=== PATIENT | female | born 1950 | race Caucasian/White ===

== ENCOUNTER 2020-03-26 10:54 | Emergency (ER) | payer MEDICARE, MEDICAID, SELFPAY ==
--- NOTE | 2020-03-26 10:55 | NURSING ---
NO OLD EKGS
[2020-03-26 10:58] VITALS: BP 123/67; PULSE 68; RESP 12; TEMP 36.8; O2SAT 99; BMI 32.1
--- NOTE | 2020-03-26 11:26 | EKG12_ITS ---
Test Reason : CP Blood Pressure : / mmHG Vent. Rate : 064 BPM Atrial Rate : 064 BPM P-R Int : 124 ms QRS Dur : 080 ms QT Int : 424 ms P-R-T Axes : 037 013 028 degrees QTc Int : 437 ms Normal sinus rhythm Normal ECG Confirmed by CARMEN NICE, DORINDA ([id number]), magazine editor MALU IYER ([id number]) on 03/28/2020 11:26:41 A M Referred By: EDEL Confirmed By:DMITRIY MORALES MD
[2020-03-26] MEDS: Aspirin 81 MG TAB.CHEW 324 MG PO (11:34)
--- NOTE | 2020-03-26 11:35 | RAD_ITS ---
STUDY: X-RAY CHEST REASON FOR EXAM: Female, 69 years old. Chest, abd, back pain x one week. n/v last night. TECHNIQUE: Single AP portable view of the chest. COMPARISON: None. FINDINGS: EKG electrodes are seen. Mild degree of increased markings in the lingular segment of the left upper lobe. Follow-up is recommended. There is no demonstrated pleural abnormality. Normal size heart. Normal mediastinum and ingrid. Normal visualized pulmonary arteries. Normal visualized aortic arch and descending thoracic aorta. There are diffuse degenerative changes of the visualized thoracic spine. Normal visualized ribs, clavicles, and shoulders. There is no demonstrated abnormality of the visualized soft tissue structures of the upper abdomen. RAD/Chest 1 View (Portable) IMPRESSION: Mild increased markings in the lingular segment of the left upper lobe. Follow-up is recommended. Electronically Signed: Ruslan Petersen, at 12:48 EDT , Service support ,
[2020-03-26 11:37] LABS: Absolute Lymphocyte Count 2.14 X10^3/uL (0.83-4.51); Absolute Neutrophil Count 4.5 X10^3/uL (2.0-7.7); Basophil# 0.04 X10^3/uL; Basophil% 0.5 % (0-1); Eosinophil# 0.28 X10^3/uL; Eosinophils% 3.7 % (0-5); Hematocrit 41.8 % (37-47); Hemoglobin 13.6 g/dL (12.0-15.0); Lymphocyte # 2.14 X10^3/ul (4.0); Lymphocyte % 28.6 % (19-41); Mean Corp Hgb Conc 32.5 g/dL (32-36); Mean Corpuscular Hgb 30.2 pg (27.0-32.0); Mean Corpuscular Volume 92.7 fL (81-99); Monocyte# 0.48 X10^3/uL; Monocyte% 6.4 % (0-10); NRBC Flagged by Analyzer 0 % (0-5); Neutrophil # 4.51 X10^3/uL (2.7-7.7); Neutrophil % 60.4 % (47-70); Platelet Count 287 K/mm3 (150-450); RBC Distribution Width CV 13.1 % (11.6-14.6); RBC Distribution Width SD 44.2 fl (35.1-43.9); Red Blood Count 4.51 M/mm3 (4.2-5.4); White Blood Count 7.5 K/mm3 (4.4-11.0)
[2020-03-26 11:39] VITALS: O2SAT 99
[2020-03-26 11:40] VITALS: BP 116/92; PULSE 66
[2020-03-26] MEDS: Nitroglycerin SL (ED/IMG/CATH) 0.4 MG TABLET SUBLINGUAL ×2 (11:40→11:44)
[2020-03-26 11:44] VITALS: BP 122/67; PULSE 92
--- NOTE | 2020-03-26 11:52 | ED.VISSUMM ---
- ER Visit Summary Date of Service: 03/26/20 Chief Complaint: Chest pain History of Present Illness: The patient is a 69 F who presents with chest pain that began 1 week ago. Patient states the pain radiates into her back. Patient describes the pain as aching and dull. Patient states the pain is worse with movement. Patient states she has been taking Aleve for this. Patient states it has been helping. Patient also admits to some pain into her abdomen with some nausea and vomiting. Patient denies any fevers or chills but does admit to some sweats. Patient admits to some pain with deep breathing. Physical Examination: Vital signs are stable. Patient is afebrile. Patient is in no acute distress. Oral mucosa is pink and moist. Neck is supple. Trachea is midline. There is no JVD noted. Heart was regular rate and rhythm. Lungs are clear and equal bilaterally. Abdomen is soft. Bowel sounds are normal. There is no tenderness. There is no rebound or guarding noted. Skin is warm dry. Cranial nerves II through XII are intact. There are no focal motor or sensory deficits noted. Extremities are intact. There is no calf tenderness or edema. Test Results: EKG showed normal sinus rhythm with a rate of 64. There are no acute ST or T wave changes. CBC and basic metabolic profile were essentially within normal limits. Troponin was normal. Chest x-ray shows some mild increased markings in the lingular segment of the left upper lobe. This was interpreted by the radiologist and reviewed by myself. Emergency Department Course and Treatment: Patient was given aspirin and sublingual nitroglycerin here. Patient is feeling better on reevaluation. Patient has a HEART score of 3. Patient was advised that this is low risk for acute cardiac event. Patient was instructed to follow-up with her primary care physician in 5 to 7 days. Patient understood and was agreeable with the plan. All questions were answered. Disposition: Discharge home Impression: Chest pain This note was generated with [employer] dictation software. It may contain incorrect words, spelling, and punctuation that were not noted in review of the chart prior to signing ED Disposition - Plan for ED Patient: Disposition: Home or Assisted Living Diagnosis: Chest pain Instructions: ED Chest Pain Atypical Unkn Cause Referrals: Jarrett Hopkins MD [Primary Care Provider] - 5-7 Days
[2020-03-26 11:59] LABS: Anion Gap 3 (5-15); BUN 12 mg/dL (7-18); BUN/Creat Ratio 14.1 RATIO (10-20); Calcium,Total 8.6 mg/dL (8.5-10.1); Chloride 110 mmol/L (98-107); Creatinine, Serum 0.85 mg/dL (0.55-1.02); EST Glomerular Filtration Rate 70 mL/min (>60); Est Glom Filt Rate - Afr Amer 85 mL/min (>60); Estimated Creatinine Clearance 47.14 ml/min; Glucose 93 mg/dL (74-106); Potassium 3.4 mmol/L (3.5-5.1); Sodium Level 142 mmol/L (136-145)
[2020-03-26 13:18] VITALS: BP 114/71; PULSE 71; RESP 14; O2SAT 97
== END 2020-03-26 13:18 | disposition home or self-care (01) ==
PROVIDERS: Emergency Provider Emergency Medicine; PCP Family Medicine
DX: R07.9 Chest pain, unspecified (principal); E66.9 Obesity, unspecified
CPT/HCPCS: 71045; 80048; 84484; 85025; 93005; 99285

== ENCOUNTER 2020-04-04 16:35 | Emergency (ER) | payer MEDICARE, MEDICAID, SELFPAY ==
[2020-04-04 16:36] VITALS: BP 117/85; PULSE 84; RESP 16; TEMP 36.3; O2SAT 98; BMI 31.4
--- NOTE | 2020-04-04 16:54 | CT_ITS ---
STUDY: CTA CHEST REASON FOR EXAM: Female, 69 years old. Shortness of breath, fatigue back pain RADIATION DOSAGE (If Supplied By Facility): CTDIvol = ( 9.57 ) mGy, DLP = ( 371.95 ) mGycm TECHNIQUE: The examination was performed with the intravenous administration of IV 75mL Isovue-370. Post-processing of the angiographic images was performed, with multiplanar reformation and 3D reconstruction. Individualized dose optimization techniques were used for this CT. COMPARISON: None. FINDINGS: There is no acute or chronic pulmonary embolism. Aorta is of normal caliber. Lungs are clear. There is no pneumothorax, pulmonary edema or pleural effusions. The esophagus is thickened at multiple segments without obstruction. Osseous structures are intact. Abdominal structures are unremarkable. CT/CTA Chest W/WO Contrast IMPRESSION: 1. No pulmonary embolism 2. No acute vascular thoracic pathology. 3. Esophageal thickening. Refer to endoscopy to exclude possibility of neoplasm.. Electronically Signed: Carla Serrano, at 17:50 EDT Tel , Service support ,
--- NOTE | 2020-04-04 16:54 | EKG12_ITS ---
Test Reason : Blood Pressure : / mmHG Vent. Rate : 077 BPM Atrial Rate : 077 BPM P-R Int : 118 ms QRS Dur : 072 ms QT Int : 362 ms P-R-T Axes : 041 030 035 degrees QTc Int : 409 ms Normal sinus rhythm Normal ECG Confirmed by RADHA NICE, KYLE ([id number]), editor index IMESHA PEREZ ([id number]) on 04/09/2020 10:10:37 AM Referred By: JENNIFER Confirmed By:KYLE GARCIA MD
--- NOTE | 2020-04-04 16:57 | ED.DCSUM_ITS ---
History of Present Illness Chief Complaint: Shortness of Breath Informant: Patient Onset: Weeks - 2 weeks Context: Gradual Onset Timing: Waxes and wanes Current Severity: Mild Maximum Severity: Moderate Narrative: Patient presents with a two-week history of shortness of breath, present all the time but worse with exertion. She also reports chest pain that waxes and wanes. She states last evening the pain went into her lower back. She was seen by her PCP yesterday where outpatient labs revealed an elevated d-dimer. She was called today and told to come the emergency room to rule out a blood clot. Patient was seen in the ER about a week ago for chest pain. Work-up at that time was unremarkable and she was advised to follow-up with her PCP. Patient denies fever or chills. She has not had significant cough. She denies exposure to Covid and states that she really has not been going out of the house much. - Past Medical History (1) Hypothyroid Status: Chronic Past Medical History - Allergies and Home Meds Allergies/Adverse Reactions: Allergies No Known Allergies Allergy (Verified 04/04/20 16:36) Primary Care Physician: Jarrett Hopkins MD [Primary Care Provider] - Prior records reviewed: Yes Smoking Status: Never smoker Review of Systems General: Denies: Chills, Fever Eyes: Denies: Visual changes - bilaterally ENT: Denies: Bilateral ear pain Cardiovascular: Reports: Chest pain Respiratory: Reports: Dyspnea. Denies: Cough Gastrointestinal: Denies: Abdominal pain, Nausea, Vomiting, Diarrhea Genitourinary: Denies: Dysuria Musculoskeletal: Denies: Swelling, Extremity Pain Skin: Denies: Rash Hematologic: Denies: Easy bruising, Easy bleeding Allergy: Denies: Uticaria Physical Exam Vital Signs/Narrative: Vital Signs Temp Pulse Resp BP Pulse Ox 04/04/20 16:36 97.3 F L 84 16 117/85 H 98 Inital Vital Signs reviewed: Yes General: Well nourished, Well developed Head: Normocephalic ENT: Moist mucous membranes Neck: Supple Cardiovascular: Regular rate, Regular rhythm Respiratory: No distress, CTA bilaterally Abdomen: Soft, Nontender Extremities: Nontender, No edema Skin: Normal color Neurological: Alert, Oriented x3 Psychological: Normal affect Diagnostic/Tx/Re-eval Impressions Chest CTA 04/04/20 16:54 IMPRESSION: 1. No pulmonary embolism 2. No acute vascular thoracic pathology. 3. Esophageal thickening. Refer to endoscopy to exclude possibility of neoplasm.. Electronically Signed: Carla Serrano, at 17:50 EDT Tel , Service support , 04/04/20 16:54 CTA Chest W/WO Contrast [CT] Stat Laboratory Results 04/04/20 04/04/20 04/04/20 17:00 17:00 17:00 WBC 7.4 RBC 4.11 L Hgb 12.7 Hct 38.1 MCV 92.7 MCH 30.9 MCHC 33.3 RDW Std Deviation 43.9 RDW Coeff of Valentina 13.1 Plt Count 255 MPV 10.1 Immature Gran % (Auto) 0.300 Neut % (Auto) 67.5 Lymph % (Auto) 20.7 [place] % (Auto) 7.0 Eos % (Auto) 4.1 Baso % (Auto) 0.4 Absolute Neuts (auto) 5.0 Absolute Lymphs (auto) 1.53 Nucleated RBC % 0 Sodium 141 Potassium 3.7 Chloride 109 H Carbon Dioxide 24.0 Anion Gap 8 BUN 11 Creatinine 0.81 Estim Creat Clear Calc 49.46 Est GFR (MDRD) Af Amer 90 Est GFR (MDRD) Non-Af 75 BUN/Creatinine Ratio 13.6 Glucose 98 Calcium 8.8 Troponin I < 0.015 COVID-19 (MARIANNE) Negative - EKG Initial EKG Interpretation: Sinus Rhythm - Sinus at 77 with no acute ischemia. - Medical Decision Making Patient's labs from [facility] yesterday were reviewed. They are repeated today and remain normal. EKG reveals no acute ischemia. CTA of the chest reveals no evidence of pulmonary embolism, no pneumonia, no lung scarring. Patient's Covid test is negative. On repeat examination patient is resting comfortably. Test results are discussed with her. She does feel comfortable with discharge to home and close follow-up. She states that she is scheduled for an outpatient stress test next week. If her symptoms worsen or she has any concerns she is to return to the emergency room. She is comfortable with this plan. ED Disposition - Plan for ED Patient: Disposition: Home or Assisted Living Diagnosis: Dyspnea Instructions: ED Dyspnea Referrals: Jarrett Hopkins MD [Primary Care Provider] - Keep Anival appointment
[2020-04-04 17:10] VITALS: PULSE 74; RESP 12; O2SAT 97
[2020-04-04 17:20] LABS: Absolute Lymphocyte Count 1.53 X10^3/uL (0.83-4.51); Basophil# 0.03 X10^3/uL; Basophil% 0.4 % (0-1); Eosinophils% 4.1 % (0-5); Hematocrit 38.1 % (37-47); Hemoglobin 12.7 g/dL (12.0-15.0); Lymphocyte # 1.53 X10^3/ul (4.0); Lymphocyte % 20.7 % (19-41); Mean Corp Hgb Conc 33.3 g/dL (32-36); Mean Corpuscular Hgb 30.9 pg (27.0-32.0); Mean Corpuscular Volume 92.7 fL (81-99); Mean Platelet Vol. 10.1 fl (6.2-12.0); Monocyte# 0.52 X10^3/uL; NRBC Flagged by Analyzer 0 % (0-5); Neutrophil # 4.99 X10^3/uL (2.7-7.7); Neutrophil % 67.5 % (47-70); Platelet Count 255 K/mm3 (150-450); RBC Distribution Width CV 13.1 % (11.6-14.6); RBC Distribution Width SD 43.9 fl (35.1-43.9); Red Blood Count 4.11 M/mm3 (4.2-5.4); White Blood Count 7.4 K/mm3 (4.4-11.0)
[2020-04-04 17:44] LABS: Anion Gap 8 (5-15); BUN 11 mg/dL (7-18); BUN/Creat Ratio 13.6 RATIO (10-20); Calcium,Total 8.8 mg/dL (8.5-10.1); Chloride 109 mmol/L (98-107); Creatinine, Serum 0.81 mg/dL (0.55-1.02); EST Glomerular Filtration Rate 75 mL/min (>60); Est Glom Filt Rate - Afr Amer 90 mL/min (>60); Estimated Creatinine Clearance 49.46 ml/min; Glucose 98 mg/dL (74-106); Potassium 3.7 mmol/L (3.5-5.1); Sodium Level 141 mmol/L (136-145)
[2020-04-04 19:06] LABS: Probe Check PASS; Specimen Processing Control PASS
[2020-04-04 19:23] VITALS: BP 110/69; PULSE 77; RESP 18; O2SAT 100
== END 2020-04-04 19:24 | disposition home or self-care (01) ==
PROVIDERS: Emergency Provider Emergency Medicine; PCP Family Medicine
DX: R06.00 Dyspnea, unspecified (principal); E03.9 Hypothyroidism, unspecified; Z79.899 Other long term (current) drug therapy
CPT/HCPCS: 71275; 80048; 84484; 85025; 87635; 93005; 99284; C9803; Q9967; A4216; U0003

== ENCOUNTER 2020-04-24 10:48 | Inpatient (IN) | payer MEDICARE, MEDICAID, SELFPAY ==
[2020-04-24] VITALS (18 sets, daily range): BP systolic 80–129; BP diastolic 46–70; PULSE 81–102; RESP 12–21; TEMP 36.3–37.2; O2SAT 96–100; BMI 30.2; BMI 30.9
--- NOTE | 2020-04-24 11:01 | RAD_ITS ---
STUDY: X-RAY CHEST REASON FOR EXAM: Female, 69 years old. GENERAL WEAKNESS, NAUSEA, LOSS OF TASTE, DIFFICULT INSPIRATION, DIAPHORESIS TECHNIQUE: Single AP portable view of the chest. COMPARISON: Comparison is made with prior study dated 03/26/2020. FINDINGS: EKG electrodes are seen. Hyperinflation. The lungs are clear. There is no demonstrated pleural abnormality. Normal size heart. Normal mediastinum and ingrid. Normal visualized pulmonary arteries. Normal visualized aortic arch and descending thoracic aorta. There are diffuse degenerative changes of the visualized thoracic spine. Normal visualized ribs, clavicles, and shoulders. There is no demonstrated abnormality of the visualized soft tissue structures of the upper abdomen. RAD/Chest 1 View (Portable) IMPRESSION: Hyperinflation. No acute abnormality is seen. Electronically Signed: Ruslan Petersen, at 12:10 EDT , Service support ,
--- NOTE | 2020-04-24 11:02 | EKG12_ITS ---
Test Reason : Blood Pressure : / mmHG Vent. Rate : 084 BPM Atrial Rate : 084 BPM P-R Int : 118 ms QRS Dur : 080 ms QT Int : 378 ms P-R-T Axes : 028 026 027 degrees QTc Int : 446 ms Normal sinus rhythm Normal ECG Confirmed by CARMEN NICE, DORINDA ([id number]), editor newspaper MALU IYER ([id number]) on 05/01/2020 12:52:13 P M Referred By: HANNAH Confirmed By:DMITRIY MORALES MD
--- NOTE | 2020-04-24 11:06 | ED.VISSUMM ---
- ER Visit Summary Date of Service: 04/24/20 Chief Complaint: Generalized weakness History of Present Illness: The patient is a 69 F who presents with generalized weakness that is been getting worse over the past 3 days. Patient states she feels weak all over. Patient admits to some shortness of breath but denies any cough. Patient admits to some sweats and subjective chills but denies any fevers. Patient admits to some nausea and vomiting. Patient also admits to some mild neck pain. Patient denies any back pain. Patient denies any dysuria or hematuria. Patient denies any headaches. Patient does admit to loss of taste. Physical Examination: Vital signs are stable. Patient is afebrile. Patient is in no acute distress. Oral mucosa is pink and moist. Neck is supple. Trachea is midline. There is no JVD noted. Heart was regular rate and rhythm. Lungs are clear and equal bilaterally. Abdomen is soft. Bowel sounds are normal. There is no tenderness. There is no rebound or guarding noted. Skin is warm dry. Cranial nerves II through XII are intact. There are no focal motor or sensory deficits noted. Extremities are intact. There is no calf tenderness or edema. Rectal exam showed good sphincter tone. There is dark brown stool. Test Results: CBC showed hemoglobin of 6.6 and hematocrit 21.8. Hemoglobin was 12.7 on 04/04/2020. Basic metabolic profile showed a mild hypokalemia of 3.3. EKG showed normal sinus rhythm with a rate of 84. There are no acute ST or T wave changes. Portable chest x-ray was obtained. There is hyperinflation but no acute cardiopulmonary process. This was interpreted by the radiologist and reviewed by myself. Hemoccult is pending. Emergency Department Course and Treatment: Patient was given IV fluids. Patient was typed and crossed for a unit of blood. This will be transfused. Case was discussed with Dr. Nelson. He recommended doing a COVID swab. This was done. He is planning on doing an EGD tomorrow at 10 AM. Case was discussed with the hospitalist, Dr. Hubbard. She will admit the patient to her service. Patient understood and was agreeable with the plan. All questions were answered. Disposition: Admit to hospital Impression: 1. Anemia 2. Probable upper GI bleed This note was generated with Dragon dictation software. It may contain incorrect words, spelling, and punctuation that were not noted in review of the chart prior to signing ED Disposition - Plan for ED Patient: Disposition: Acute Care Hospital [facility] Diagnosis: Anemia, Upper GI bleeding
[2020-04-24 11:18] LABS: Absolute Lymphocyte Count 1.27 X10^3/uL (0.83-4.51); Basophil# 0.04 X10^3/uL; Basophil% 0.4 % (0-1); Eosinophil# 0.14 X10^3/uL; Eosinophils% 1.5 % (0-5); Hematocrit 21.8 % (37-47); Hemoglobin 6.6 g/dL (12.0-15.0); Lymphocyte # 1.27 X10^3/ul (4.0); Lymphocyte % 13.7 % (19-41); Mean Corp Hgb Conc 30.3 g/dL (32-36); Mean Corpuscular Hgb 29.1 pg (27.0-32.0); Mean Platelet Vol. 9.5 fl (6.2-12.0); Monocyte# 0.66 X10^3/uL; Monocyte% 7.1 % (0-10); NRBC Flagged by Analyzer 0 % (0-5); Neutrophil # 7.01 X10^3/uL (2.7-7.7); Neutrophil % 75.9 % (47-70); Platelet Count 438 K/mm3 (150-450); RBC Distribution Width CV 13.4 % (11.6-14.6); Red Blood Count 2.27 M/mm3 (4.2-5.4); White Blood Count 9.3 K/mm3 (4.4-11.0)
[2020-04-24 11:38] LABS: ALB/GLOB Ratio 0.7 RATIO (0.9-2.4); AST(SGOT) 15 U/L (15-37); Alanine Aminotransfer ALT/SGPT 17 U/L (13-56); Albumin, Serum 2.8 g/dL (3.2-5.0); Alkaline Phosphatase 84 U/L (45-117); Anion Gap 5 (5-15); BUN 15 mg/dL (7-18); BUN/Creat Ratio 17.3 RATIO (10-20); Calcium,Total 8.6 mg/dL (8.5-10.1); Chloride 104 mmol/L (98-107); Creatinine, Serum 0.87 mg/dL (0.55-1.02); EST Glomerular Filtration Rate 69 mL/min (>60); Est Glom Filt Rate - Afr Amer 83 mL/min (>60); Estimated Creatinine Clearance 46.05 ml/min; Globulin 4.1 g/dL (2.2-4.2); Glucose 109 mg/dL (74-106); Potassium 3.3 mmol/L (3.5-5.1); Protein, Total 6.9 g/dL (6.4-8.2); Sodium Level 137 mmol/L (136-145)
--- NOTE | 2020-04-24 13:49 | HP.PCM_ITS ---
History of Present Illness Date of Admission: 04/24/20 Chief Complaint: generalised weakness The patient is a 69 year old F with a PMH as outlined who was admitted with a complaint generalized malaise. Patient says she has been having generalized body pains over the last month and symptoms have gradually been worsening. She has therefore been taking Aleve 2 tablets daily for this pain. Symptoms have been worse over the past 3 days. She had some associated shortness of breath but denied any cough, chest pain, palpitations, dizziness though she did admit to some nausea and vomiting. She said her vomiting was dark and coffee like. She admits to dark stools over the last few days but denied any dysuria or hematochezia or hematuria. She admitted to abdominal pain mainly in her epigastrium and says she thought it was her ulcers acting up. Review of signs otherwise negative. Patient says she has a history of peptic ulcer disease diagnosed decades ago. She denies taking any medications for this though she has Protonix in her med list, she denies taking this. In the ED, vitals show temperature of 97.8 Fahrenheit with pulse rate of 81 and respiratory to 15 as well as blood pressure of 114/49. She was saturating at 100% on room air. Chemistry showed sodium of 137 potassium of 3.3 with bilirubin of 0.3 and creatinine of 0.87. CBC showed hemoglobin of 6.6 and WBC of 9.3 with platelets of 438. Chest x-ray showed no acute cardiopulmonary process. Of note, hemoglobin on 04/04/2020 was 12.7. She has been admitted to be managed for acute anemia likely due to bleeding peptic ulcer as well as general debility. [] Past Medical History Past Medical History (Chronic Problems): Chronic Problems Hypothyroid (Chronic) Allergies No Known Allergies Allergy (Verified 04/24/20 10:48) Home Medications: Ambulatory Orders Medication Instructions Recorded Escitalopram Oxalate 10 mg PO DAILY 03/26/20 Levothyroxine [Synthroid] 75 mcg PO DAILY 03/26/20 Paliperidone Palmitate [Invega 156 mg IM QMONTH 03/26/20 Sustenna] Benztropine Mesylate 1 mg PO DAILY 04/04/20 Pantoprazole Sodium [Protonix] 20 mg PO DAILY 04/04/20 Naproxen Sodium [Aleve] 220 mg PO BID 04/24/20 Surgical History: no surgical history Psychiatric History: No pertinent psych hx MEAT WRAPPER History: No pertinent MEAT WRAPPER history Lives: Alone Smoking Status: Never smoker Alcohol: None Drugs: None - *Family History Maternal History Items: No pertinent history Paternal History Items: No pertinent history Review of Systems Constitutional: Reports: Malaise, Weakness, Fatigue. Denies: Chills, Fever, Weight Change Eyes: Denies: Blurred vision HEENT: Denies: Head Aches, Sinus Congestion, Sinus Drainage Cardiovascular: Denies: Chest Pain, Palpitations Respiratory: Denies: Cough, Shortness of Breath, Shortness of breath at rest, Shortness of breath upon exertion, Sputum production Gastrointestinal: Reports: Abdominal Pain, Nausea, Melena, Vomiting, - - coffee ground emesis Genitourinary: Denies: Dysuria Musculoskeletal: Denies: Joint Pain, Joint Tenderness Skin: Denies: Rash, Wounds Neurological: Denies: Numbness, Tingling, Focal weakness Psychiatric: Denies: Anxiety, Depression, Homicidal Ideations, Suicidal Ideations Hematologic/ Lymphatic: Denies: Easy Bruising, Easy Bleeding VTE Information - Inpt Only VTE Present on Admission: No VTE Pharm Prophylaxis ordered?: No Reason prophylaxis not ordered:: Medical Contraindication - acute on chronic anemia Patient Problems: Active and Suspected Problems Anemia (Acute) Upper GI bleeding (Acute) - Physical Exam Vitals/I&O's: Vital Signs Temp Pulse Resp BP Pulse Ox 97.4 F L 102 H 18 105/70 100 04/24/20 10:57 04/24/20 10:57 04/24/20 10:57 04/24/20 10:57 04/24/20 10:57 Oxygen Delivery Method Room Air Weight: 160 lb Body Mass Index (BMI) 30.2 General: Alert, Oriented x3, Cooperative HEENT: Atraumatic, PERRLA, EOMI, Normocephalic Oral: Dry Mucosa Neck: Supple, No JVD, Negative Carotid Bruits Lungs: Clear to auscultation, Normal air movement, No rhonchi, No wheeze Cardiovascular: Regular rate, Regular Rhythm, Normal S1, Normal S2, No murmurs Abdomen: Bowel Sounds Present, Soft, - - moderate epigstric pain, no guarding or rebound tenderness Extremities: No clubbing, No cyanosis, No edema, Capillary Refill Less than 3 Seconds Skin: No rashes, No breakdown Musculoskeletal: No Tenderness to Palpation of Joints or Extremities Lymphatic: No Cervical, Supraclavicular, or Inguinal Adenopathy Neurological: Cranial nerves II-XII grossly intact, Neuro grossly intact, Motor Exam 5/5 strength throughout Psych/Mental Status: Normal Affect, Appropriate, Alert and oriented to time, place, person, mood and affect Laboratory Results 04/24/20 11:10: WBC 9.3, RBC 2.27 L, Hgb 6.6 L, Hct 21.8 L, MCV 96.0, MCH 29.1, MCHC 30.3 L, RDW Std Deviation 47.0 H, RDW Coeff of Valentina 13.4, Plt Count 438, MPV 9.5, Immature Gran % (Auto) 1.400 H, Neut % (Auto) 75.9 H, Lymph % (Auto) 13.7 L, [place] % (Auto) 7.1, Eos % (Auto) 1.5, Baso % (Auto) 0.4, Absolute Neuts (auto) 7.0, Absolute Lymphs (auto) 1.27, Nucleated RBC % 0 04/24/20 11:10: Sodium 137, Potassium 3.3 L, Chloride 104, Carbon Dioxide 28.0, Anion Gap 5, BUN 15, Creatinine 0.87, Estim Creat Clear Calc 46.05, Est GFR (MDRD) Af Amer 83, Est GFR (MDRD) Non-Af 69, BUN/Creatinine Ratio 17.3, Glucose 109 H, Calcium 8.6, Total Bilirubin 0.30, AST 15, ALT 17, Alkaline Phosphatase 84, Troponin I 0.016, Total Protein 6.9, Albumin 2.8 L, Globulin 4.1, Albumin/Globulin Ratio 0.7 L Diagnostic Data Chest X-Ray 04/24/20 11:01 IMPRESSION: Hyperinflation. No acute abnormality is seen. Electronically Signed: Ruslan Petersen, at 12:10 EDT , Service support , Assessment/Plan All Active Problems Anemia (Acute) Upper GI bleeding (Acute) 69-year-old female admitted with a complaint of generalized malaise and found to have acute anemia. #Acute anemia due to bleeding peptic ulcer * patient does have a history of peptic ulcer disease, and has been taking naproxen frequently for body aches. She doesnt take any protonix, though it is in her med rec.; * Hemoglobin is 6.6. Hemoglobin was 12.7 on 04/04/2020. * Admits to dark stools and coffee-ground emesis or bright red blood per rectum. * Admit to PCU with telemetry. * Patient typed and crossed to be transfused 1 unit of packed red blood cells from ED. * Consult general surgery. * Will keep n.p.o. past midnight for EGD and colonoscopy tomorrow * check iron panel * Agree gently with IV fluids. * IV pantoprazole 40 mg twice daily * # Peptic ulcer disease: management as above. #Debility likely due to acute anemia: PT OT on board. Management as above. Fall precautions. #Hypothyroidism: On Synthroid #Schizophrenia and bipolar disorder: On Invega and escitalopram DVT prophylaxis: * SCDs. * No anticoagulation on account of acute anemia CODE STATUS:full code * Patient counseled extensively about different types of CODE STATUS including full code, DNR CCA and DNR CCA. Patient elects to be full code. * Total [id number] time 17 minutes. Inpatient E&M: 72900 Init Hosp L3 Procedures: 19789 Advncd Care Plan 30 Min
[2020-04-24 13:50] LABS: Bacteria 0 SEEN /hpf (None Seen); Mucous, Urine 0 SEEN /hpf (<or=2+); Red Blood Cells-Urine 0 SEEN /hpf (0-5)
--- NOTE | 2020-04-24 13:55 | NURSING ---
MED SURG ANEMIA, GENERALIZED WEAKNESS TRANG
[2020-04-24 14:01] LABS: Color, Urine Yellow (Yellow); Glucose, Dipstick Normal (Normal); Ketone-Dipstick 5 mg/dl (Negative); Leukocyte Esterase-Dipstick 100 /ul (Negative); Nitrite-Dipstick Negative (Negative); Occult Blood-Urine Negative /ul (Negative); Protein-Dipstick 30 mg/dl (Negative); Urine Clarity Clear (Clear); Urine Urobilinogen 1 mg/dl (Normal)
[2020-04-24 14:04] LABS: Urine Bilirubin Dipstick 1 mg/dL (Negative)
[2020-04-24 14:16] LABS: Calcium Oxalate Crystals Ur 2+ /hpf (<or=2+); Squamous Epithelial Cells - UA 0-5 SEEN /hpf (5-10); White Blood Cells 0-5 SEEN /hpf (0-5)
[2020-04-24 14:59] LABS: CPK Total, Creatine Kinase 47 U/L (26-192)
[2020-04-24] MEDS: Potassium Chloride 40 MEQ in 0.9% Normal Saline 1,000 ML 125 MEQ IV (18:25)
[2020-04-25] VITALS (23 sets, daily range): BP systolic 80–109; BP diastolic 33–62; PULSE 66–99; RESP 16–18; TEMP 36.4–37.2; O2SAT 93–100; BMI 30.9
[2020-04-25] MEDS: Potassium Chloride 40 MEQ in 0.9% Normal Saline 1,000 ML 125 MEQ IV (03:40)
[2020-04-25 05:09] LABS: Absolute Lymphocyte Count 1.57 X10^3/uL (0.83-4.51); Absolute Neutrophil Count 4.7 X10^3/uL (2.0-7.7); Basophil# 0.04 X10^3/uL; Basophil% 0.5 % (0-1); Eosinophil# 0.21 X10^3/uL; Eosinophils% 2.9 % (0-5); Hematocrit 22.5 % (37-47); Hemoglobin 7.1 g/dL (12.0-15.0); Lymphocyte # 1.57 X10^3/ul (4.0); Lymphocyte % 21.5 % (19-41); Mean Corp Hgb Conc 31.6 g/dL (32-36); Mean Corpuscular Hgb 29.1 pg (27.0-32.0); Mean Corpuscular Volume 92.2 fL (81-99); Mean Platelet Vol. 8.7 fl (6.2-12.0); Monocyte# 0.66 X10^3/uL; NRBC Flagged by Analyzer 0.3 % (0-5); Neutrophil # 4.74 X10^3/uL (2.7-7.7); Neutrophil % 64.9 % (47-70); Platelet Count 339 K/mm3 (150-450); RBC Distribution Width CV 14.8 % (11.6-14.6); RBC Distribution Width SD 50.2 fl (35.1-43.9); Red Blood Count 2.44 M/mm3 (4.2-5.4); White Blood Count 7.3 K/mm3 (4.4-11.0)
[2020-04-25 05:27] LABS: Anion Gap 4 (5-15); BUN 9 mg/dL (7-18); BUN/Creat Ratio 13.6 RATIO (10-20); Calcium,Total 7.6 mg/dL (8.5-10.1); Chloride 109 mmol/L (98-107); Creatinine, Serum 0.66 mg/dL (0.55-1.02); EST Glomerular Filtration Rate 94 mL/min (>60); Est Glom Filt Rate - Afr Amer 114 mL/min (>60); Estimated Creatinine Clearance 40.07 ml/min; Glucose 88 mg/dL (74-106); Potassium 3.9 mmol/L (3.5-5.1); Sodium Level 139 mmol/L (136-145)
--- NOTE | 2020-04-25 07:31 | CON.PCM_ITS ---
Problem List (1) Anemia Status: Acute Qualifiers: Anemia type: unspecified type Qualified Code(s): D64.9 - Anemia, unspecified (2) Upper GI bleeding Status: Acute Reason for Consult Date of Consultation: 04/25/20 Reason for Consultation: GI bleed History of Present Illness: The patient is a 69 year old F who presents with anemia and fatigue. The patient reports that she has been having fatigue for a while but she only describes 1 episode of dark stool. She is having epigastric pain. She has a history of bleeding ulcers in the past. Past Medical History Past Medical History (Chronic Problems): Chronic Problems Hypothyroid (Chronic) Allergies No Known Allergies Allergy (Verified 04/24/20 10:48) Home Medications: Ambulatory Orders Medication Instructions Recorded Escitalopram Oxalate 10 mg PO DAILY 03/26/20 Levothyroxine [Synthroid] 75 mcg PO DAILY 03/26/20 Paliperidone Palmitate [Invega 156 mg IM QMONTH 03/26/20 Sustenna] Benztropine Mesylate 1 mg PO DAILY 04/04/20 Pantoprazole Sodium [Protonix] 20 mg PO DAILY 04/04/20 Naproxen Sodium [Aleve] 220 mg PO BID 04/24/20 Surgical History: no surgical history Psychiatric History: No pertinent psych hx [employer] 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 Denies: Nausea, Vomiting Genitourinary: Denies: Dysuria Musculoskeletal: Denies: Joint Tenderness Neurological: Denies: Balance problems Hematologic/ Lymphatic: Reports: Anemia Patient Problems: Active and Suspected Problems Anemia (Acute) Upper GI bleeding (Acute) - Physical Exam Vitals/I&O's: Vital Signs Temp Pulse Resp BP Pulse Ox 99.0 F 84 18 109/57 L 96 04/25/20 03:23 04/25/20 03:23 04/25/20 03:23 04/25/20 03:23 04/25/20 03:23 Oxygen Delivery Method Room Air Weight: 163 lb 5.8 oz Body Mass Index (BMI) 30.9 Intake and Output for Last 24 Hours 04/23/20 04/24/20 04/25/20 23:59 23:59 23:59 Intake Total 1455.42 / 1455.42 384.58 / 384.58 Output Total 300 / 300 Balance 1155.42 / 1155.42 384.58 / 384.58 General: Alert, Oriented x3 Neck: Supple Lungs: Normal air movement Cardiovascular: Regular rate, Regular Rhythm Abdomen: Soft, Non-Distended, Tender - Epigastric tenderness Musculoskeletal: No Muscle Wasting Neurological: Cranial nerves II-XII grossly intact Psych/Mental Status: Normal Affect Microbiology Past 72 Hours 04/24/20 13:35 Stool Stool Occult Blood (AMANDA) - Final Laboratory Results 04/24/20 11:10: WBC 9.3, RBC 2.27 L, Hgb 6.6 L, Hct 21.8 L, MCV 96.0, MCH 29.1, MCHC 30.3 L, RDW Std Deviation 47.0 H, RDW Coeff of Valentina 13.4, Plt Count 438, MPV 9.5, Immature Gran % (Auto) 1.400 H, Neut % (Auto) 75.9 H, Lymph % (Auto) 13.7 L, [place] % (Auto) 7.1, Eos % (Auto) 1.5, Baso % (Auto) 0.4, Absolute Neuts (auto) 7.0, Absolute Lymphs (auto) 1.27, Nucleated RBC % 0 04/24/20 11:10: Sodium 137, Potassium 3.3 L, Chloride 104, Carbon Dioxide 28.0, Anion Gap 5, BUN 15, Creatinine 0.87, Estim Creat Clear Calc 46.05, Est GFR (MDRD) Af Amer 83, Est GFR (MDRD) Non-Af 69, BUN/Creatinine Ratio 17.3, Glucose 109 H, Calcium 8.6, Total Bilirubin 0.30, AST 15, ALT 17, Alkaline Phosphatase 8 4, Troponin I 0.016, Total Protein 6.9, Albumin 2.8 L, Globulin 4.1, Albumin/Globulin Ratio 0.7 L 04/24/20 11:10: Total Creatine Kinase 47 04/24/20 13:35: Urine Color Yellow, Urine Clarity Clear, Urine pH 5.0, Ur Specific Whitwell 1.020, Urine Protein 30 H, Urine Glucose (UA) Normal, Urine Ketones 5 H, Urine Occult Blood Negative, Urine Nitrite Negative, Urine Bilirubin 1 H, Urine Urobilinogen 1 H, Ur Leukocyte Esterase 100 H, Urine RBC 0 SEEN, Urine WBC 0-5 SEEN, Ur Squamous Epith Cells 0-5 SEEN, Calcium Oxalate Crystal 2+, Urine Bacteria 0 SEEN, Urine Mucus 0 SEEN 04/24/20 13:40: Blood Type B POSITIVE, Antibody Screen NEGATIVE, Crossmatch See Detail 04/24/20 14:05: COVID-19 (MARIANNE) Not Detected 04/25/20 05:00: WBC 7.3, RBC 2.44 L, Hgb 7.1 L, Hct 22.5 L, MCV 92.2, MCH 29.1, MCHC 31.6 L, RDW Std Deviation 50.2 H, RDW Coeff of Valentina 14.8 H, Plt Count 339, MPV 8.7, Immature Gran % (Auto) 1.200 H, Neut % (Auto) 64.9, Lymph % (Auto) 21.5, Culebra % (Auto) 9.0, Eos % (Auto) 2.9, Baso % (Auto) 0.5, Absolute Neuts (auto) 4.7, Absolute Lymphs (auto) 1.57, Nucleated RBC % 0.3 04/25/20 05:00: Sodium 139, Potassium 3.9, Chloride 109 H, Carbon Dioxide 26.0, Anion Gap 4 L, BUN 9, Creatinine 0.66, Estim Creat Clear Calc 40.07, Est GFR (MDRD) Af Amer 114, Est GFR (MDRD) Non-Af 94, BUN/Creatinine Ratio 13.6, Glucose 88, Calcium 7.6 L Current Medications Benztropine Mesylate (Benztropine Mesylate) 1 mg PO DAILY [facility] Escitalopram Oxalate (Lexapro) 10 mg PO DAILY [facility] Potassium Chloride 40 meq/ (Sodium Chloride) 1,020 mls @ 125 mls/hr IV .Q8H10M MEAGHAN Stop: 04/25/20 09:50 Last Admin: 04/25/20 03:40 Dose: 125 mls/hr Documented by: Pantoprazole Sodium 40 mg/ (Sodium Chloride) 110 mls @ 330 mls/hr IV Q12 MEAGHAN Last Infusion: 04/24/20 23:57 Dose: Infused Documented by: Levothyroxine Sodium (Synthroid) 75 mcg PO DAILY@0600 [facility] Last Admin: 04/25/20 04:51 Dose: Not Given Documented by: Ondansetron HCl (Zofran) 4 mg IV Q8H PRN PRN PRN Reason: NAUSEA/VOMITING Sodium Chloride () 10 - 40 ml IV UD PRN PRN Reason: SALINE FLUSH Assessment/Plan All Active Problems Anemia (Acute) Upper GI bleeding (Acute) 69-year-old female with severe anemia and epigastric pain 1. Patient reports episodes of dark stool. The patient has a history of bleeding ulcers and has been taking NSAIDs. I will perform an EGD this morning. I discussed this with her in detail. 2. I explained endoscopy in detail to the patient. I explained the risks including but not limited to stroke or heart attack with anesthesia, perforation of the GI tract, bleeding, infection. I explained that any of these could necessitate further emergency surgery. The patient understands and all questions were answered sufficiently. The patient wishes to proceed with procedure. Lawrence Nelson MD Pager: [facility] [address] [place] [address], [address] [place] [address] Office:
--- NOTE | 2020-04-25 10:00 | IMM_PTH ---
PATIENT: MACHO GUERRERO LOC: [facility] U#:[id number] AGE/SX: 69/F ROOM: [facility] RE04/24/[address]: Dr. Victor M Lopes MD : 1950 BED: 1 DIS: 04/26/2020 SPEC #: [id number] RECD: 04/28/20 09:38 STATUS: VERONICA REQ #: [id number] VICKI: 04/25/20 10:[address]: Lawrence eNlson DEPT: IMMUNOHISTOCHEMISTRY RECD BY: Taylor Boyle ENTERED: 04/28/20 09:39 SP TYPE: IMMUNO OTHR DR: MD Dr. Kaitlin Chun MD Dr. Prakash Chand, MD Tissues: A - Stomach, NOS B - Esophageal mucous membrane Procedures: H Pylori (initial) P53 (initial) KI-67 (add) PHYSICIAN & INSTITUTION [place] [id number] SPECIMEN INFORMATION: Tissue Source: A - Antrum biopsy, B - Esophageal ulcer biopsy Clinical Info: Anemia, upper GI bleed Specimen Number: [id number] A & B CPT code: 32659 x2, 49346 METHODOLOGY: Deparaffinized sections of prefer/formalin-fixed tissue or PAP/DQ stained slides are incubated with monoclonal/polyclonal antibodies/oligonucleotide probes. Localization is made via biotin free immunoperoxidase method. Appropriate controls are performed and reacted as expected. Results on target cell population are indicated in the following table: RESULTS: ANTIBODY / CLONE RESULT Block A H Pylori (polyclonal) negative Block B P53 (DO-7) negative Ki-67 (30-9) positive, low These tests were developed and their performance characteristics determined by [facility]. They may not have been cleared or approved by the U.S. Food and Drug Administration. The FDA has determined that such clearance or approval is not necessary. The above immunohistochemical/dualISH markers are ordered and reviewed by the pathologist. INTERPRETATION: A. Antrum biopsy: Negative for Helicobacter pylori organisms. B. Esophageal ulcer, biopsy: No evidence of dysplasia. AM:barbie 04/30/20
--- NOTE | 2020-04-25 10:00 | EGD_PTH ---
PATIENT: MACHO GUERRERO LOC: [facility] U#:[id number] AGE/SX: 69/F ROOM: [facility] RE04/24/[address]: Dr. Victor M Lopes MD : 1950 BED: 1 DIS: 04/26/2020 SPEC #: [id number] RECD: 04/25/20 14:16 STATUS: VERONICA REAnh #: [id number] VICKI: 04/25/20 10:[address]: Lawrence Nelson DEPT: SURGICAL PATHOLOGY RECD BY: Elliot Biggs ENTERED: 04/28/20 10:52 SP TYPE: EGD BIOPSY OTHR DR: MD Dr. Kaitlin Chun MD Dr. Prakash Chand, MD Tissues: A - Gastric mucous membrane B - Esophageal mucous membrane Procedures: Special Stain Group II Surgery Specimen Level IV Alcian Blue/PAS (control) HEADER OPERATION: EGD (MAC) PRE-OP DIAGNOSIS: Anemia, upper GI bleed TISSUE SUBMITTED: A - Antrum biopsy for histo and H. pylori, B - Esophageal ulcer biopsy MICROSCOPIC DIAGNOSIS A. Gastric antrum, biopsy: Chronic gastritis. See comment. B. Esophageal ulcer, biopsy: Fragments of gastric mucosa with ulceration and associated acute and chronic inflammation and fibrinopurulent exudate. Goblet cell metaplasia. No evidence of dysplasia. See comment. AM:barbie 04/29/20 COMMENT A. The results of immunohistochemistry for Helicobacter pylori will be reported separately ([id number]). B. Immunohistochemistry ([id number]) supports the above diagnosis. Alcian blue/PAS stain with matched control supports the above diagnosis. MICROSCOPIC DESCRIPTION Slides are reviewed. GROSS DESCRIPTION A - Received in fixative is one container labeled with the patient's name and designated antrum biopsy. The specimen consists of one irregular fragment of light dial soft tissue that measures 0.4 x 0.2 x 0.1 cm. The specimen is totally submitted in one cassette. B - Received in fixative is one container labeled with the patient's name and designated esophageal ulcer biopsy. The specimen consists of multiple irregular fragments of light dial soft tissue that in aggregate measure 1.5 x 0.6 x 0.1 cm. The specimen is totally submitted in one cassette. / AM:barbie 04/28/20 TC:2 CPT: 24832 x2, 80003
--- NOTE | 2020-04-25 10:19 | PCM.PN.BLA ---
Progress Note I performed an EGD on the patient. The patient has 2 esophageal ulcers. 1 of them is very large and measures approximately 5 cm in length. Biopsies were performed of the rim of this ulcer. Patient did not have any ulcers in the stomach or active bleeding. Patient did have a small ulcer in the duodenum which was nonbleeding. I will start the patient on a full liquid diet and add Carafate to her IV PPI regiment. Plan is for the primary service to transfuse her once again today. Continue to monitor hemoglobin. Lawrence Nelson MD Pager: [facility] [address] [place] [address], [address] [place] [address] Office: [place] Vital Signs/Narrative: Vital Signs Temp Pulse Resp BP Pulse Ox 04/25/20 08:48 99.0 F 84 18 109/57 L 96 04/25/20 07:00 85
--- NOTE | 2020-04-25 10:24 | OP.EGD_ITS ---
Patient Name: Manju Tinoco Procedure Date: 04/25/2020 9:52 AM Date of : 1950 Age: 69 Procedure: Upper GI endoscopy Indications: Melena Providers: Lawrence Nelson MD Medicines: Monitored Anesthesia Care Patient Profile: This is a 69 year old female. Refer to note in patient chart for documentation of history and physical. Complications: No immediate complications. Estimated blood loss: Minimal. Procedure: Pre-Anesthesia Assessment: - Prior to the procedure, a History and Physical was performed, and patient medications and allergies were reviewed. The patient's tolerance of previous anesthesia was also reviewed. The risks and benefits of the procedure and the sedation options and risks were discussed with the patient. All questions were answered, and informed consent was obtained. Prior Anticoagulants: The patient has taken previous NSAID medication. After reviewing the risks and benefits, the patient was deemed in satisfactory condition to undergo the procedure. After obtaining informed consent, the endoscope was passed under direct vision. Throughout the procedure, the patient's blood pressure, pulse, and oxygen saturations were monitored continuously. The Endoscope was introduced through the mouth, and advanced to the fourth part of duodenum. The upper GI endoscopy was accomplished without difficulty. The patient tolerated the procedure well. Scope In: 10:07:39 AM Scope Out: 10:13:38 AM Total Procedure Duration Time 0 hours 5 minutes 59 seconds Findings: Two cratered esophageal ulcers with no bleeding and no stigmata of recent bleeding were found 25 to 30 cm from the incisors. Biopsies were taken with a cold forceps for histology. A medium-sized hiatal hernia was present. Biopsies were taken with a cold forceps in the gastric antrum for Helicobacter pylori testing. One non-bleeding cratered duodenal ulcer with no stigmata of bleeding was found in the second portion of the duodenum. Impression: - Non-bleeding esophageal ulcers. Biopsied. - Medium-sized hiatal hernia. - One non-bleeding duodenal ulcer with no stigmata of bleeding. - Biopsies were taken with a cold forceps for Helicobacter pylori testing. Recommendation: - Return patient to [facility] for ongoing care. - Full liquid diet. - Continue present medications. - Await pathology results. Procedure Code(s): --- Professional --- 61528, Esophagogastroduodenoscopy, flexible, transoral; with biopsy, single or multiple Diagnosis Code(s): --- Professional --- K22.10, Ulcer of esophagus without bleeding K44.9, Diaphragmatic hernia without obstruction or gangrene K26.9, Duodenal ulcer, unspecified as acute or chronic, without hemorrhage or perforation K92.1, Melena (includes Hematochezia) CPT copyright 2017 [employer]. All rights reserved. The codes documented in this report are preliminary and upon petroleum terminal plant operator review may be revised to meet current compliance requirements. Lawrence Nelson MD 04/25/2020 10:23:25 AM This report has been signed electronically. Number of Addenda: 0 Note Initiated On: 04/25/2020 9:52 AM
--- NOTE | 2020-04-25 10:24 | OP.CCLET_ITS ---
04/25/2020 Jarrett Hopkins [address] [place] [address] Re : Upper GI endoscopy procedure for Manju Tinoco Dear Dr. Hopkins This procedure was performed on Saturday, April 25, 2020. My impressions and recommendations are as follows: Impressions : - Non-bleeding esophageal ulcers. Biopsied. - Medium-sized hiatal hernia. - One non-bleeding duodenal ulcer with no stigmata of bleeding. - Biopsies were taken with a cold forceps for Helicobacter pylori testing. Recommendations : - Return patient to [facility] for ongoing care. - Full liquid diet. - Continue present medications. - Await pathology results. My findings are described in the full procedure note, which is enclosed. If I can be of further assistance, please feel free to contact me at Doctor phone number(s): , Work: . Sincerely, Lawrence Nelson MD 04/25/2020 10:23:25 AM This report has been signed electronically.
--- NOTE | 2020-04-25 11:26 | NURSING ---
[facility] late, pt off floor for EGD. Obtained as soon as pt returned to floor.
[2020-04-25] MEDS: Escitalopram Oxalate 10 MG Tablet PO (11:29)
[2020-04-25] MEDS: Benztropine Mesylate 0.5 MG TABLET 1 MG PO (11:29)
[2020-04-25] MEDS: Sucralfate 1 GM Tablet PO ×3 (11:29→21:57)
--- NOTE | 2020-04-25 11:37 | PCM.PROGNOTE ---
<Johanny Tilley FIRE SPRINKLER INSPECTOR - Last Filed: 04/25/20 11:48> Patient Problems: Active and Suspected Problems Anemia (Acute) Upper GI bleeding (Acute) Subjective: Patient seen and examined. Underwent EGD this morning which showed esophageal and duodenal ulcers. Patient denies further nausea, vomiting. Denies further blood in stool. Denies dizziness, lightheadedness, shortness of breath. - Physical Exam Vitals/I&O's: Vital Signs Temp Pulse Resp BP Pulse Ox 98.5 F 82 18 99/43 L 99 04/25/20 11:15 04/25/20 11:15 04/25/20 11:15 04/25/20 11:15 04/25/20 11:15 Oxygen Delivery Method Room Air Weight: 163 lb 5.8 oz Body Mass Index (BMI) 30.9 Intake and Output for Last 24 Hours 04/23/20 04/24/20 04/25/20 23:59 23:59 23:59 Intake Total 1455.42 / 1455.42 1161.25 / 1161.25 Output Total 300 / 300 550 / 550 Balance 1155.42 / 1155.42 611.25 / 611.25 General: Alert, Oriented x3, Cooperative HEENT: Atraumatic, PERRLA, EOMI, Normocephalic Neck: Supple, No JVD, Negative Carotid Bruits Lungs: Clear to auscultation, Normal air movement Cardiovascular: Regular rate, No murmurs Abdomen: Bowel Sounds Present, Soft, Non Tender, Non-Distended Extremities: No clubbing, No cyanosis, No edema, Capillary Refill Less than 3 Seconds Skin: No rashes, No breakdown Musculoskeletal: No Tenderness to Palpation of Joints or Extremities Neurological: Cranial nerves II-XII grossly intact, Neuro grossly intact Psych/Mental Status: Normal Affect, Appropriate Microbiology Past 72 Hours 04/24/20 13:35 Stool Stool Occult Blood (AMANDA) - Final Laboratory Results 04/24/20 11:10: Sodium 137, Potassium 3.3 L, Chloride 104, Carbon Dioxide 28.0, Anion Gap 5, BUN 15, Creatinine 0.87, Estim Creat Clear Calc 46.05, Est GFR (MDRD) Af Amer 83, Est GFR (MDRD) Non-Af 69, BUN/Creatinine Ratio 17.3, Glucose 109 H, Calcium 8.6, Total Bilirubin 0.30, AST 15, ALT 17, Alkaline Phosphatase 84, Troponin I 0.016, Total Protein 6.9, Albumin 2.8 L, Globulin 4.1, Albumin/Globulin Ratio 0.7 L 04/24/20 11:10: Total Creatine Kinase 47 04/24/20 13:35: Urine Color Yellow, Urine Clarity Clear, Urine pH 5.0, Ur Specific [place] 1.020, Urine Protein 30 H, Urine Glucose (UA) Normal, Urine Ketones 5 H, Urine Occult Blood Negative, Urine Nitrite Negative, Urine Bilirubin 1 H, Urine Urobilinogen 1 H, Ur Leukocyte Esterase 100 H, Urine RBC 0 SEEN, Urine WBC 0-5 SEEN, Ur Squamous Epith Cells 0-5 SEEN, Calcium Oxalate Crystal 2+, Urine Bacteria 0 SEEN, Urine Mucus 0 SEEN 04/24/20 13:40: Blood Type B POSITIVE, Antibody Screen NEGATIVE, Crossmatch See Detail 04/24/20 13:40: Crossmatch See Detail 04/24/20 14:05: COVID-19 (MARIANNE) Not Detected 04/25/20 05:00: WBC 7.3, RBC 2.44 L, Hgb 7.1 L, Hct 22.5 L, MCV 92.2, MCH 29.1, MCHC 31.6 L, RDW Std Deviation 50.2 H, RDW Coeff of Valentina 14.8 H, Plt Count 339, MPV 8.7, Immature Gran % (Auto) 1.200 H, Neut % (Auto) 64.9, Lymph % (Auto) 21.5, [place] % (Auto) 9.0, Eos % (Auto) 2.9, Baso % (Auto) 0.5, Absolute Neuts (auto) 4.7, Absolute Lymphs (auto) 1.57, Nucleated RBC % 0.3 04/25/20 05:00: Sodium 139, Potassium 3.9, Chloride 109 H, Carbon Dioxide 26.0, Anion Gap 4 L, BUN 9, Creatinine 0.66, Estim Creat Clear Calc 40.07, Est GFR (MDRD) Af Amer 114, Est GFR (MDRD) Non-Af 94, BUN/Creatinine Ratio 13.6, Glucose 88, Calcium 7.6 L Current Medications Benztropine Mesylate (Benztropine Mesylate) 1 mg PO DAILY [facility] Escitalopram Oxalate (Lexapro) 10 mg PO DAILY [facility] Potassium Chloride 40 meq/ (Sodium Chloride) 1,020 mls @ 62.5 mls/hr IV .[id number] [facility] Stop: 04/26/20 02:09 Last Infusion: 04/25/20 09:00 Dose: 62.5 mls/hr Documented by: Pantoprazole Sodium 40 mg/ (Sodium Chloride) 110 mls @ 330 mls/hr IV Q12 [facility] Last Infusion: 04/24/20 23:57 Dose: Infused Documented by: Levothyroxine Sodium (Synthroid) 75 mcg PO DAILY@0600 [facility] Last Admin: 04/25/20 04:51 Dose: Not Given Documented by: Ondansetron HCl (Zofran) 4 mg IV Q8H PRN PRN PRN Reason: NAUSEA/VOMITING Sodium Chloride () 10 - 40 ml IV UD PRN PRN Reason: SALINE FLUSH Sucralfate (Carafate) 1 gm PO 1HR_ACHS [facility] Medical Necessity - Tobacco Use Smoking Status: Never smoker Tobacco Use: Non-smoker, Secondhand Assessment/Plan All Active Problems Anemia (Acute) Upper GI bleeding (Acute) 1. Acute symptomatic blood loss anemia secondary to upper GI bleed as result of esophageal and duodenal ulcers-EGD demonstrated nonbleeding esophageal ulcers, nonbleeding duodenal ulcer, biopsies taken. Continue IV PPI. Trend H&H. 2 unit PRBC ordered. PT/OT. General surgery following. Counseled on avoiding NSAIDs. 2. History of peptic ulcer disease-EGD/treatment per above. 3. Hypothyroidism-continue Synthroid regimen. 4. Schizophrenia/bipolar disorder-on Invega and escitalopram. DVT prophylaxis-SCDs This patient was seen by SEKOU Hernandez under the supervision of Dr. Lopes. <Victor M Lopes - Last Filed: 04/25/20 12:48> Subjective: Patient is admitted with generalized weakness, dyspnea on exertion with no energy. Patient has been taking 2 tablets of Aleve every day for past 1 month for pain. She said she had dark stool for a few days and had one-time vomiting coffee-ground color. She is admitted with H&H 6.6/21.8, and underwent second unit of PRBC transfusion. After returning from EGD, patient blood pressure is low, systolic 80s probably secondary to propofol. It seems she has total 400 mg of IV propofol. Physical exam General: Alert, Oriented x3, Cooperative HEENT: Atraumatic, PERRLA, EOMI, Normocephalic Oral: No Gingival or Mucosal Lesions/ Ulcerations Neck: Supple, No JVD, Negative Carotid Bruits Lungs: Air entry diminished in bilateral lung bases. No crepitation/rhonchi. Cardiovascular: Regular rate, Regular Rhythm, Normal S1, Normal S2, No murmurs Abdomen: Bowel Sounds Present, Soft, Non Tender, Non-Distended : No renal angle tenderness. No suprapubic tenderness. Extremities: No edema, Capillary Refill Less than 3 Seconds Skin: No rashes, No breakdown Musculoskeletal: No Tenderness to Palpation of Joints or Extremities Neurological: Cranial nerves II-XII grossly intact, Deep Tendon Reflexes 2+/4 and Symmetrical, Neuro grossly intact Psych/Mental Status: Normal Affect, Appropriate. - Physical Exam Vitals/I&O's: Vital Signs Temp Pulse Resp BP Pulse Ox 97.6 F L 84 18 80/62 L 100 04/25/20 12:13 04/25/20 12:13 04/25/20 12:13 04/25/20 12:13 04/25/20 12:13 Oxygen Delivery Method Room Air Weight: 163 lb 5.8 oz Body Mass Index (BMI) 30.9 Intake and Output for Last 24 Hours 04/23/20 04/24/20 04/25/20 23:59 23:59 23:59 Intake Total 1455.42 / 1455.42 1271.25 / 1271.25 Output Total 300 / 300 550 / 550 Balance 1155.42 / 1155.42 721.25 / 721.25 Microbiology Past 72 Hours 04/24/20 13:35 Stool Stool Occult Blood (AMANDA) - Final Laboratory Results 04/24/20 11:10: Total Creatine Kinase 47 04/24/20 13:35: Urine Color Yellow, Urine Clarity Clear, Urine pH 5.0, Ur Specific [place] 1.020, Urine Protein 30 H, Urine Glucose (UA) Normal, Urine Ketones 5 H, Urine Occult Blood Negative, Urine Nitrite Negative, Urine Bilirubin 1 H, Urine Urobilinogen 1 H, Ur Leukocyte Esterase 100 H, Urine RBC 0 SEEN, Urine WBC 0-5 SEEN, Ur Squamous Epith Cells 0-5 SEEN, Calcium Oxalate Crystal 2+, Urine Bacteria 0 SEEN, Urine Mucus 0 SEEN 04/24/20 13:40: Blood Type B POSITIVE, Antibody Screen NEGATIVE, Crossmatch See Detail 04/24/20 13:40: Crossmatch See Detail 04/24/20 14:05: COVID-19 (MARIANNE) Not Detected 04/25/20 05:00: WBC 7.3, RBC 2.44 L, Hgb 7.1 L, Hct 22.5 L, MCV 92.2, MCH 29.1, MCHC 31.6 L, RDW Std Deviation 50.2 H, RDW Coeff of Valentina 14.8 H, Plt Count 339, MPV 8.7, Immature Gran % (Auto) 1.200 H, Neut % (Auto) 64.9, Lymph % (Auto) 21.5, [place] % (Auto) 9.0, Eos % (Auto) 2.9, Baso % (Auto) 0.5, Absolute Neuts (auto) 4.7, Absolute Lymphs (auto) 1.57, Nucleated RBC % 0.3 04/25/20 05:00: Sodium 139, Potassium 3.9, Chloride 109 H, Carbon Dioxide 26.0, Anion Gap 4 L, BUN 9, Creatinine 0.66, Estim Creat Clear Calc 40.07, Est GFR (MDRD) Af Amer 114, Est GFR (MDRD) Non-Af 94, BUN/Creatinine Ratio 13.6, Glucose 88, Calcium 7.6 L Current Medications Benztropine Mesylate (Benztropine Mesylate) 1 mg PO DAILY [facility] Last Admin: 04/25/20 11:29 Dose: 1 mg Documented by: Escitalopram Oxalate (Lexapro) 10 mg PO DAILY [facility] Last Admin: 04/25/20 11:29 Dose: 10 mg Documented by: Potassium Chloride 40 meq/ (Sodium Chloride) 1,020 mls @ 62.5 mls/hr IV .[id number] [facility] Stop: 04/26/20 02:09 Last Infusion: 04/25/20 09:00 Dose: 62.5 mls/hr Documented by: Pantoprazole Sodium 40 mg/ (Sodium Chloride) 110 mls @ 330 mls/hr IV Q12 [facility] Last Infusion: 04/25/20 11:58 Dose: Infused Documented by: Levothyroxine Sodium (Synthroid) 75 mcg PO DAILY@0600 [facility] Last Admin: 04/25/20 04:51 Dose: Not Given Documented by: Ondansetron HCl (Zofran) 4 mg IV Q8H PRN PRN PRN Reason: NAUSEA/VOMITING Sodium Chloride () 10 - 40 ml IV UD PRN PRN Reason: SALINE FLUSH Sucralfate (Carafate) 1 gm PO 1HR_ACHS [facility] Last Admin: 04/25/20 11:29 Dose: 1 gm Documented by: Assessment/Plan This patient was seen in conjunction with Johanny DAMON. I have independently interviewed and examined the patient and reviewed pertinent history, examination findings, laboratory and plan of management. I have reviewed the note and agree with the documented findings with the few additional points. In brief, patient is admitted for acute symptomatic blood loss anemia from multiple ulcers in esophagus and duodenum most likely from NSAID/Aleve. Hemoglobin went up from 6.1-7.1 after 1 unit of transfusion. Currently undergoing second unit of transfusion. Hemoglobin shows normocytic normochromic anemia. EGD shows 2 ulcer in the esophagus, medium-sized hiatus hernia and one nonbleeding duodenal ulcer. Patient is on PPI and sucralfate. Hypotension most likely secondary to anesthetic agent, propofol: IV fluid normal saline bolus. Monitor BP, urine output, intake and output. Mild hypokalemia: Potassium is being replaced. Other comorbidities as mentioned above. I have discussed my assessment with Johanny DAMON and orders have been reviewed. Total time of the visit including total time spent in counseling or coordination of care, (more than 50% of the total time, spent in obtaining medical information from nurses and other ancillary care providers), discussion with sales consultant, review of labs and imaging is 30 minutes. Inpatient E&M: [id number] [place] [address]
[2020-04-25] MEDS: 0.9% Saline Lock 10 ML Syringe IV ×4 (12:43→22:47)
--- NOTE | 2020-04-25 14:42 | CHAPLAIN ---
Type of Pastoral Visit _x__ Initial Visit ___ Follow-up Visit ___ On-call Visit ___ General Patient Visit ___ Spiritual Assessment ___ Family Conference ___ Bereavement ___ Rapid Response ___ Code Blue ___ Other (describe below) Pastoral Care Referral From _x__ Patient ___ Family ___ Nurse ___ Physician ___ Counter Sales Person ___ Sheet Manager ___ Other (describe below) Sacrament/Intervention _x__ Active listening ___ Anointing ___ Mosque ___ Bereavement ___ Communion ___ Angie exploration ___ ___ Life review _x__ Prayer ___ Reconciliation ___ Sacrament of Sick _x__ Supportive presence ___ Wedding ___ Other (describe below) Pastoral Comments patient described her illness; SO is with pt in room
--- NOTE | 2020-04-25 15:33 | CASEMGMT ---
RN CM Assessment Note Intro role of CM to patient in room. Patient is awake and alert, able to participate in assessment. Friend, Ricardo is also in room and states he has been assisting patient over the past month with groceries, driving. The patient plans to return home on discharge. Presentation: hematemesis Diagnosis: anemia, bleeding ulcer PCP: Dr. Hopkins Specialists: none Insurance: [facility] Preferred Pharmacy: [facility] Benefit: yes LNOK: Ricardo Thomas, Friend Living Arrangements: Lives in one story apartment, no stairs.States she is able to complete own ADL's. Her friend has been helping with getting groceries, driving. Tranportation: friend Ricardo is driving. DME: states none HHC: no SNF: no Patient DC Goals: Home on dc. DC Plan: anticipate home on discharge. Patient denies any needs and her friend states he can assist. CM available for discharge planning coordination. Contact CM for any concerns/needs that may arise. Alicia WEBSTER RN ACM
[2020-04-25 18:09] LABS: Hematocrit 29.6 % (37-47); Hemoglobin 9.2 g/dL (12.0-15.0)
[2020-04-25 23:59] LABS: Hematocrit 27.7 % (37-47); Hemoglobin 8.7 g/dL (12.0-15.0)
[2020-04-26] VITALS (8 sets, daily range): BP systolic 90–93; BP diastolic 32–38; PULSE 72–83; RESP 18; TEMP 36.2–36.8; O2SAT 98–100
[2020-04-26] MEDS: Levothyroxine 75 MCG Tablet PO (06:15)
[2020-04-26] MEDS: Sucralfate 1 GM Tablet PO ×2 (06:15→12:36)
[2020-04-26 07:43] LABS: Hemoglobin 9.1 g/dL (12.0-15.0)
[2020-04-26] MEDS: Benztropine Mesylate 0.5 MG TABLET 1 MG PO (09:32)
[2020-04-26] MEDS: Escitalopram Oxalate 10 MG Tablet PO (09:33)
[2020-04-26] MEDS: 0.9% Saline Lock 10 ML Syringe IV (09:43)
--- NOTE | 2020-04-26 10:12 | PCM.PN.SRG ---
Patient Problems: Active and Suspected Problems Anemia (Acute) Upper GI bleeding (Acute) Subjective: Patient not complaining of any discomfort this morning. Has not had any bowel movements. Tolerating p.o. without difficulty. Objective: Diminished soft and nontender. - Physical Exam Vitals/I&O's: Vital Signs Temp Pulse Resp BP Pulse Ox 97.5 F L 83 18 90/32 L 98 04/26/20 09:25 04/26/20 09:25 04/26/20 09:25 04/26/20 09:25 04/26/20 09:25 Oxygen Delivery Method Room Air Weight: 163 lb 5.8 oz Body Mass Index (BMI) 30.9 Intake and Output for Last 24 Hours 04/24/20 04/25/20 04/26/20 23:59 23:59 23:59 Intake Total 1455.42 / 1455.42 2474.58 / 2624.58 299.5 / 299.5 Output Total 300 / 300 850 / 1150 1000 / 1000 Balance 1155.42 / 1155.42 1624.58 / 1474.58 -700.5 / -700.5 Microbiology Past 72 Hours 04/24/20 13:35 Stool Stool Occult Blood (AMANDA) - Final Laboratory Results 04/24/20 13:40: Crossmatch See Detail 04/24/20 13:40: Crossmatch See Detail 04/25/20 17:47: Hgb 9.2 L, Hct 29.6 L 04/25/20 23:47: Hgb 8.7 L, Hct 27.7 L 04/26/20 06:40: Hgb 9.1 L, Hct 30.0 L Current Medications Benztropine Mesylate (Benztropine Mesylate) 1 mg PO DAILY [facility] Last Admin: 04/26/20 09:32 Dose: 1 mg Documented by: Calcium Carbonate (Tums) 500 mg PO Q4H PRN PRN PRN Reason: indigestion Escitalopram Oxalate (Lexapro) 10 mg PO DAILY [facility] Last Admin: 04/26/20 09:33 Dose: 10 mg Documented by: Pantoprazole Sodium 40 mg/ (Sodium Chloride) 110 mls @ 330 mls/hr IV Q12 [facility] Last Infusion: 04/26/20 09:43 Dose: 0 mls/hr Documented by: Levothyroxine Sodium (Synthroid) 75 mcg PO DAILY@0600 [facility] Last Admin: 04/26/20 06:15 Dose: 75 mcg Documented by: Nutritional Formula (Lactose Free) (Ensure Enlive) 120 ml PO 4X/DAY [facility] Last Admin: 04/26/20 09:33 Dose: 120 ml Documented by: Ondansetron HCl (Zofran) 4 mg IV Q8H PRN PRN PRN Reason: NAUSEA/VOMITING Sodium Chloride () 10 - 40 ml IV UD PRN PRN Reason: SALINE FLUSH Last Admin: 04/26/20 09:43 Dose: 10 ml Documented by: Sucralfate (Carafate) 1 gm PO 1HR_ACHS [facility] Last Admin: 04/26/20 06:15 Dose: 1 gm Documented by: Medical Necessity - Tobacco Use Smoking Status: Never smoker Tobacco Use: Non-smoker, Secondhand Assessment/Plan All Active Problems Anemia (Acute) Upper GI bleeding (Acute) No further surgical intervention is needed at this time would continue Carafate and proton pump inhibitor in an outpatient setting as well. Inpatient E&M: [id number] [facility] L2
--- NOTE | 2020-04-26 12:15 | CASEMGMT ---
SOCIAL WORK Informant: CARL PARK Reason for Consult: Discharge Planning Met with patient in room. Introduced role and reason for referral. Patient's friend, Ricardo present and patient gave permission for this worker to speak openly with friend present. Patient reports lives home alone and is normally independent. Patient states plan for discharge is to return home as before. Patient denies need for SNF. Patient's friend agrees with plan and states is able to stay with patient upon discharge to assist with needs. Patient follows with PCP-Dr. Hopkins. Patient reports history of Bipolar Disorder and Schizophrenia. Patient states is treated with medication and follows with [facility]. Patient denies any history of substance use. Patient utilizes [facility]. Updated Exerciser, Kacie on the above. Plan: Home, denies any needs. Yaakov Mullen MSW, WRONG ADDRESS CLERK
--- NOTE | 2020-04-26 12:40 | CASEMGMT ---
Addendum entered by Kacie Link 04/26/20 14:11: Script for OP PT/OT eval and treat obtained from Dr Lopes and given to pt at this time. Original Note: RN CM NOTE: GUNNER notified that pt informed Dr Lopes that she wishes to go to a SNF. Fatmata MARTINO, met with pt, and informs this RN CM that pt states she does not want to go to a SNF, that she wishes to return home. See Fatmata MARTINO, note. RN CM to room to clarify with pt her wishes @ discharge. Introduced self and role of RN CM. Pt sitting up in chair in room and her friend is sitting beside her. Pt tells this RN CM that she was just feeling tired this morning and now that she is up and has eaten that she feels better and feels that she is safe to return home. PT/OT notes have been reviewed. PT does not recommend additional therapy. OT does recommend additional therapy. Pt/friend made aware. Discussed options of HHC and OP therapy. Pt initially stated is interested in HHC. Pt provided with list of local HHC agencies. She was made aware HHC can not be set up over the weekend and advised to talk to her PCP to have them assist with HHC. Upon further discussion, pt then stated would like to go to OP therapy. She denies having any transportation concerns. She was made aware of local OP facilities and states she is not sure which one she would like to go to . Pt made aware will obtain script from Dr Lopes and she can take the script to location of her choice. Pt's friend states he is planning on staying with pt for awhile once she returns home and will be available to help as needed. Yonny WEBSTER RN CM
--- NOTE | 2020-04-26 14:08 | DCINST_ITS ---
- Discharge Diagnoses Current Active Problems: Current Active and Chronic Problems Anemia (Acute) Upper GI bleeding (Acute) You will use the following diet at home:: No restrictions Discharge Activity: Return to Normal Activity Call your doctor if you observe: Shortness of breath, Dizziness, Fainting spells, Chest pain Additional Instructions: May use Tylenol for pain. Do not use Advil, Aleve, ibuprofen or other NSAIDs. Allergies/Adverse Reactions: Allergies No Known Allergies Allergy (Verified 04/24/20 10:48) Medications to take at Discharge Escitalopram Oxalate 10 mg PO DAILY 03/26/20 Levothyroxine [Synthroid] 75 mcg PO DAILY 03/26/20 Paliperidone Palmitate [Invega Sustenna] 156 mg IM QMONTH 03/26/20 Benztropine Mesylate 1 mg PO DAILY 04/04/20 Pantoprazole Sodium [Protonix] 40 mg PO BID #60 tab 04/26/20 Sucralfate [Carafate] 1 gm PO 1HR_ACHS #120 tab 04/26/20 The following prescriptions were given: Sucralfate [Carafate] 1 gm PO 1HR_ACHS #120 tab Transmission Status: Pending to [facility] - [id number] Pantoprazole Sodium [Protonix] 40 mg PO BID #60 tab Transmission Status: Pending to [facility] - [id number] Primary Care Physician: Jarrett Hopkins MD [Primary Care Provider] - Please follow up with your Primary Care Physician in: 1 Week Test Results: Test results from this visit will be discussed in further detail at your follow- up appointment, if applicable. Please Follow Up With: Lawrence Nelson MD When: 2 Weeks Proposed Discharge Date: 04/26/20
--- NOTE | 2020-04-26 14:09 | PCM.DC.SUM ---
<Johanny Tilley TILE PRESSER - Last Filed: 04/26/20 14:13> Discharge Date and Diagnosis Date of Admission: 04/24/20 Date of Discharge: 04/26/20 - Primary Discharge Diagnosis Acute Problems: Active Problems 1. Acute symptomatic blood loss anemia secondary to upper GI bleed as result of esophageal and duodenal ulcers 2. History of peptic ulcer disease 3. Hypothyroidism 4. Schizophrenia/bipolar disorder - Secondary Discharge Diagnosis Chronic Problems: Chronic Problems Hypothyroid (Chronic) Hospital Course and Treatment Imaging Results: Diagnostic Data Chest X-Ray 04/24/20 11:01 IMPRESSION: Hyperinflation. No acute abnormality is seen. Electronically Signed: Ruslan Petersen, at 12:10 EDT , Service support , Dr. Nelson- general surgery Operations: None Procedures: EGD Summary of Care Provided: The patient is a 69 year old F admitted 04/24/2020 due to generalized weakness. 1. Acute symptomatic blood loss anemia secondary to upper GI bleed as result of esophageal and duodenal ulcers-EGD demonstrated nonbleeding esophageal ulcers, nonbleeding duodenal ulcer, biopsies taken. IV PPI during admission. Continue Carafate ACHS and twice daily PPI at discharge. Hemoglobin stable status post 2 units PRBC. Counseled on avoiding NSAID use. May use Tylenol as needed for pain. PT evaluated patient and felt patient is safe for home with home therapies. Follow-up with general surgery in 2 weeks. Follow-up with PCP in 1 week. 2. History of peptic ulcer disease-EGD/treatment per above. 3. Hypothyroidism-continue Synthroid regimen. 4. Schizophrenia/bipolar disorder-on Invega and escitalopram. General: Alert, Oriented x3, Cooperative HEENT: Atraumatic, PERRLA, EOMI, Normocephalic Neck: Supple, No JVD, Negative Carotid Bruits Lungs: Clear to auscultation, Normal air movement Cardiovascular: Regular rate, No murmurs Abdomen: Bowel Sounds Present, Soft, Non Tender, Non-Distended Extremities: No clubbing, No cyanosis, No edema, Capillary Refill Less than 3 Seconds Skin: No rashes, No breakdown Musculoskeletal: No Tenderness to Palpation of Joints or Extremities Neurological: Cranial nerves II-XII grossly intact, Neuro grossly intact Psych/Mental Status: Normal Affect, Appropriate Patient seen and examined prior to discharge. Physical assessment as noted above. Patient is stable for discharge with follow up recommendations as noted above. This patient was seen by SEKOU Hernandez under the supervision of Dr. Lopes. - Physical Exam Vitals/I&O's: Vital Signs Temp Pulse Resp BP Pulse Ox 97.1 F L 78 18 90/38 L 100 04/26/20 11:25 04/26/20 11:25 04/26/20 11:25 04/26/20 11:25 04/26/20 11:25 Oxygen Delivery Method Room Air Weight: 163 lb 5.8 oz Body Mass Index (BMI) 30.9 Intake and Output for Last 24 Hours 04/24/20 04/25/20 04/26/20 23:59 23:59 23:59 Intake Total 1455.42 / 1455.42 2474.58 / 2624.58 899.5 / 899.5 Output Total 300 / 300 850 / 1150 1600 / 1600 Balance 1155.42 / 1155.42 1624.58 / 1474.58 -700.5 / -700.5 Microbiology Past 72 Hours 04/24/20 13:35 Stool Stool Occult Blood (AMANDA) - Final Laboratory Results 04/24/20 13:40: Crossmatch See Detail 04/25/20 17:47: Hgb 9.2 L, Hct 29.6 L 04/25/20 23:47: Hgb 8.7 L, Hct 27.7 L 04/26/20 06:40: Hgb 9.1 L, Hct 30.0 L Current Medications Benztropine Mesylate (Benztropine Mesylate) 1 mg PO DAILY [facility] Last Admin: 04/26/20 09:32 Dose: 1 mg Documented by: Calcium Carbonate (Tums) 500 mg PO Q4H PRN PRN PRN Reason: indigestion Escitalopram Oxalate (Lexapro) 10 mg PO DAILY [facility] Last Admin: 04/26/20 09:33 Dose: 10 mg Documented by: Pantoprazole Sodium 40 mg/ (Sodium Chloride) 110 mls @ 330 mls/hr IV Q12 [facility] Last Infusion: 04/26/20 09:43 Dose: 0 mls/hr Documented by: Levothyroxine Sodium (Synthroid) 75 mcg PO DAILY@0600 [facility] Last Admin: 04/26/20 06:15 Dose: 75 mcg Documented by: Nutritional Formula (Lactose Free) (Ensure Enlive) 120 ml PO 4X/DAY [facility] Last Admin: 04/26/20 09:33 Dose: 120 ml Documented by: Ondansetron HCl (Zofran) 4 mg IV Q8H PRN PRN PRN Reason: NAUSEA/VOMITING Sodium Chloride () 10 - 40 ml IV UD PRN PRN Reason: SALINE FLUSH Last Admin: 04/26/20 09:43 Dose: 10 ml Documented by: Sucralfate (Carafate) 1 gm PO 1HR_ACHS [facility] Last Admin: 04/26/20 12:36 Dose: 1 gm Documented by: Discharge Diet: No Restrictions Discharge Activity: Return to Normal Activity Call your doctor if you observe: Shortness of breath, Dizziness, Fainting spells, Chest pain Home Medications: Medications to take at Discharge Escitalopram Oxalate 10 mg PO DAILY 03/26/20 Levothyroxine [Synthroid] 75 mcg PO DAILY 03/26/20 Paliperidone Palmitate [Invega Sustenna] 156 mg IM QMONTH 03/26/20 Benztropine Mesylate 1 mg PO DAILY 04/04/20 Pantoprazole Sodium [Protonix] 40 mg PO BID #60 tab 04/26/20 Sucralfate [Carafate] 1 gm PO 1HR_ACHS #120 tab 04/26/20 Following Prescriptions Were Given to Patient: Sucralfate [Carafate] 1 gm PO 1HR_ACHS #120 tab Transmission Status: Received by [facility] [id number] Pantoprazole Sodium [Protonix] 40 mg PO BID #60 tab Transmission Status: Received by [facility] [id number] Primary Care Physician: Jarrett Hopkins MD [Primary Care Provider] - Please follow up with your Primary Care Physician in: 1 Week Please Follow Up With: Lawrence Nelson MD When: 2 Weeks Disposition: Home Minutes spent on discharge:: 35 Patient Condition:: Stable Medical Necessity - Tobacco Use Smoking Status: Never smoker Tobacco Use: Non-smoker, Secondhand Meaningful Use Info Meaningful Use Diagnoses (Choose all that apply): None applicable <Victor M Lopes - Last Filed: 04/27/20 12:16> Discharge Date and Diagnosis - Secondary Discharge Diagnosis Chronic Problems: Chronic Problems Hypothyroid (Chronic) Hospital Course and Treatment Summary of Care Provided: This patient was seen in conjunction with Johanny DAMON. I have independently interviewed and examined the patient and reviewed pertinent history, examination findings, laboratory and plan of management. I have reviewed the note and agree with the documented findings with the few additional points. In brief, patient is admitted for acute symptomatic blood loss anemia from multiple ulcers in esophagus and duodenum most likely from NSAID/Aleve. Hemoglobin went up from 7.1-9.1 after 2 units of PRBC transfusion. Hemoglobin shows normocytic normochromic anemia. EGD shows 2 ulcer in the esophagus, medium-sized hiatus hernia and one nonbleeding duodenal ulcer. Patient is on PPI and sucralfate. Hypotension most likely secondary to anesthetic agent, propofol: Resolved with IV fluid normal saline bolus. Monitor BP, urine output, intake and output. Mild hypokalemia: Potassium was replaced and hypokalemia resolved. Other comorbidities as mentioned above. Patient is discharged home with outpatient rehab. I have discussed my assessment with TILE PRESSERJohanny and orders have been reviewed. Discharge medication reconciliation done. Discharge follow-up instructions completed. Discharge process discussed with the patient and all questions were answered to patient's satisfaction. Total time spent, exact 35 minutes on discharge meds reconciliation, examination, coordination of care with nurses and ancillary staff, review of imaging and blood test and discussion with the patient on follow-up instructions [] Objective: Patient in the morning felt weak and difficulty in getting up. Patient seen by PT and OT. Patient had physical therapy for lower extremities and PT recommended outpatient rehab. Later on she agreed to go home. Physical exam General: Alert, Oriented x3, Cooperative HEENT: Atraumatic, PERRLA, EOMI, Normocephalic Oral: No Gingival or Mucosal Lesions/ Ulcerations Neck: Supple, No JVD, Negative Carotid Bruits Lungs: Air entry diminished in bilateral lung bases. No crepitation/rhonchi. Cardiovascular: Regular rate, Regular Rhythm, Normal S1, Normal S2, No murmurs Abdomen: Bowel Sounds Present, Soft, Non Tender, Non-Distended : No renal angle tenderness. No suprapubic tenderness. Extremities: No edema, Capillary Refill Less than 3 Seconds Skin: No rashes, No breakdown Musculoskeletal: No Tenderness to Palpation of Joints or Extremities Neurological: Cranial nerves II-XII grossly intact, Deep Tendon Reflexes 2+/4 and Symmetrical, Neuro grossly intact Psych/Mental Status: Normal Affect, Appropriate. - Physical Exam Vitals/I&O's: Vital Signs Temp Pulse Resp BP Pulse Ox 97.1 F L 78 18 90/38 L 100 04/26/20 14:08 04/26/20 14:08 04/26/20 14:08 04/26/20 14:08 04/26/20 14:08 Oxygen Delivery Method Room Air Weight: 163 lb 5.8 oz Body Mass Index (BMI) 30.9 Intake and Output for Last 24 Hours 04/25/20 04/26/20 04/27/20 23:59 23:59 23:59 Intake Total 2474.58 / 2624.58 899.5 / 899.5 Output Total 850 / 1150 1600 / 1600 Balance 1624.58 / 1474.58 -700.5 / -700.5 Microbiology Past 72 Hours 04/24/20 13:35 Stool Stool Occult Blood (AMANDA) - Final Inpatient E&M: [id number] Disch Hosp
== END 2020-04-26 15:40 | disposition home or self-care (01) | DRG 378 ==
LOC: ED 14:01 → PCU 14:07
PROVIDERS: Nurse Practitioner Family; Surgery; Admitting Provider Student in an Organized Health Care Education/Training Program; Emergency Provider Emergency Medicine; PCP Family Medicine; Visit Provider Internal Medicine
PROC: 0DJ08ZZ Inspection of Upper Intestinal Tract, Via Natural or Artificial Opening Endoscopic (ICD-10-PCS; CPT 43235; principal; 2020-04-25 09:55)
DX: K26.4 Chronic or unspecified duodenal ulcer with hemorrhage (principal); D62 Acute posthemorrhagic anemia; K22.11 Ulcer of esophagus with bleeding; E03.9 Hypothyroidism, unspecified; F31.9 Bipolar disorder, unspecified; F20.9 Schizophrenia, unspecified; E66.9 Obesity, unspecified; Z79.899 Other long term (current) drug therapy; Z68.30 Body mass index [BMI] 30.0-30.9, adult; R53.81 Other malaise; K44.9 Diaphragmatic hernia without obstruction or gangrene; I95.2 Hypotension due to drugs; T41.295A Adverse effect of other general anesthetics, initial encounter; E87.6 Hypokalemia; T39.315A Adverse effect of propionic acid derivatives, initial encounter; K29.50 Unspecified chronic gastritis without bleeding
CPT/HCPCS: 36415; 71045; 80048; 80053; 81001; 82274; 82550; 84484; 85014; 85018; 85025; 86850; 86900; 86901; 86920; 86922; 87635; 88305; 88313; 88341; 88342; 93005; 97116; 97162; 97166; 97530; 99285; J7030; J7040; J7050; P9016; A4216; J2405; U0003

== ENCOUNTER → 2020-04-24 | Outpatient (CLI) | payer MEDICARE, MEDICAID, SELFPAY ==
[2020-04-04 16:36] VITALS: BMI 31.4
== END | disposition home or self-care (01) ==
LOC: CVS 09:57
PROVIDERS: PCP Family Medicine; Referring Provider Nurse Practitioner Family; Visit Provider Nurse Practitioner Family
DX: R07.89 Other chest pain (principal); R06.02 Shortness of breath

== ENCOUNTER 2021-04-07 19:51 | Emergency (ER) | payer MEDICARE, MEDICAID, SELFPAY ==
[2021-04-07 19:54] VITALS: BP 135/97; PULSE 113; RESP 16; TEMP 36.6; O2SAT 89; BMI 33.4
[2021-04-07 20:04] VITALS: O2SAT 94
--- NOTE | 2021-04-07 20:32 | EKG12_ITS ---
Test Reason : SOB Blood Pressure : / mmHG Vent. Rate : 113 BPM Atrial Rate : 113 BPM P-R Int : 124 ms QRS Dur : 076 ms QT Int : 352 ms P-R-T Axes : 061 013 071 degrees QTc Int : 482 ms Sinus tachycardia Nonspecific ST abnormality Abnormal ECG Confirmed by RADHA NICE, KYLE ([id number]), purchasing expeditor MALU IYER ([id number]) on 04/09/2021 9:18:23 AM Referred By: JENNIFER Confirmed By:KYLE GARCIA MD
--- NOTE | 2021-04-07 20:32 | CT_ITS ---
We are attempting to reach an attending provider to discuss findings. An addendum with communication details will be sent when the communication is complete. STUDY: CT ABDOMEN AND PELVIS WITH CONTRAST REASON FOR EXAM: Female, 70 years old. abdominal pain RADIATION DOSAGE (If Supplied By Facility): CTDIvol = ( 19.23 ) mGy, DLP = ( 1093.54 ) mGycm TECHNIQUE: Transaxial images were obtained from the dome of the diaphragm to the symphysis pubis without oral contrast. IV 100mL Isovue-300 was administered. Sagittal and coronal images were reconstructed. Individualized dose optimization techniques were used for this CT. COMPARISON: CT chest 04/04/2020. FINDINGS: Extraluminal gas in the posterior mediastinum surrounding the distal esophagus. Small right pleural effusion. Mild airspace disease in the right lower lobe. The liver is unremarkable. The gallbladder is surgically absent. Spleen is normal. Pancreas is unremarkable. The adrenal glands are normal. 1.3 cm left renal cyst. The kidneys are otherwise unremarkable. No stones or hydronephrosis. The aorta is normal in caliber. There is no free fluid, free air or organized collection. No bowel obstruction or inflammatory change. Normal appendix. Urinary bladder is unremarkable. Normal abdominal wall. Normal osseous structures. CT/Abdomen/Pelvis W IV Cont ONLY IMPRESSION: 1. Extraluminal gas around the distal esophagus. Findings are concerning for perforation. This may be due to malignancy, infection, or severe vomiting. Consider CT of the chest for further evaluation. 2. Right lower lobe pneumonia. 3. Small right pleural effusion. Electronically Signed: Gia Avelar MD at 22:01 EDT Tel , Service support ,
--- NOTE | 2021-04-07 20:33 | EDS_ITS ---
HPI History of Present Illness Chief Complaint: Shortness of Breath Informant: patient Narrative Narrative: Patient is a 70-year-old female with history of hypothyroid, GI bleed and chronic back pain presenting with shortness of breath and abdominal pain. 30 minutes prior to arrival she is having spasms in her back usually short of breath. She thinks that her doctor took her off her yellow pill for back muscle spasms and that is why she is having these. She also notes that last night after eating dinner she started throwing up and since then has been having vomiting and epigastric abdominal pain. She been having a cough since throwing up as well. She has pain in the right side of her chest. She currently denies any abdominal pain but does associates that with her vomiting. She denies any sick contacts. She has had her Covid vaccine. She denies any fever or chills. No other complaints at this time. [facility] Medical History Stomach ulcer Home Medications escitalopram oxalate 10 mg PO DAILY 03/26/20 [History Last Taken 04/23/20] levothyroxine 75 mcg PO DAILY 03/26/20 [History Last Taken 04/23/20] paliperidone palmitate 156 mg IM QMONTH 03/26/20 [History Last Taken 04/03/20] benztropine 1 mg PO DAILY 04/04/20 [History Last Taken 04/23/20] pantoprazole 40 mg PO BID #60 tab 04/26/20 [Rx Last Taken Unknown] sucralfate 1 gm PO 1HR_ACHS #120 tab 04/26/20 [Rx Last Taken Unknown] Allergy/AdvReac Type Severity Reaction Status Date / Time No Known Allergies Allergy Verified 04/07/21 19:57 Social History Smoking Status: Never smoker ROS ROS ED Constitutional Constitutional ED: Denies chills, fever(s) or malaise Eyes Eyes: Denies blurry vision or loss of vision ENT ENT ED: Denies rhinorrhea or sore throat Cardiovascular Cardiovascular: Reports chest pain; Denies dizziness Respiratory/Chest Respiratory/Chest: Reports cough and dyspnea Gastrointestinal Gastrointestinal: Reports abdominal pain, nausea and vomiting Genitourinary Genitourinary ED: Denies dysuria or hematuria Musculoskeletal Musculoskeletal: Reports back pain; Denies arthralgias or myalgias Integumentary Denies rash or wounds Neurologic Neurologic: Denies focal weakness or headache(s) Psychiatric Psychiatric: Denies anxiety or behavioral changes EXAM Physical Exam Const Vital Signs: 04/07/21 19:54 04/07/21 20:04 04/07/21 22:20 Temperature 97.8 F Temperature Source Temporal Pulse Rate 113 H Respiratory Rate 16 Blood Pressure 135/97 H Blood Pressure Mean 109 Pulse Ox 89 94 Oxygen Delivery Method Room Air Nasal Cannula Nasal Cannula Oxygen Flow Rate (L/min) 2 04/07/21 22:52 04/07/21 23:48 Temperature 97.4 F L Temperature Source Temporal Pulse Rate 117 H 114 H Respiratory Rate 24 H 30 H Blood Pressure 118/76 Blood Pressure Mean 90 Pulse Ox 94 91 Oxygen Delivery Method Nasal Cannula Nasal Cannula Oxygen Flow Rate (L/min) 2 3 Positive well nourished and well developed General Appearance ED: well developed HEENT Reports moist mucous membranes Negative for tenderness Eyes PERRL and EOMs intact bilaterally Neck no lymphadenopathy, supple and no JVD Chest Wall inspection of chest normal and palpation of chest normal Resp normal respiratory effort and clear to auscultation bilaterally Cardio regular rate, regular rhythm and no murmurs GI non-distended Inspection: Negative for abdominal distention Auscultation: normoactive bowel sounds Palpation: soft, tender epigastric and guarding other (Voluntary to the epigastric region) Extremity normal to inspection Neuro oriented x3 and CN's II-XII intact bilaterally Sensorium / Orientation: alert Psych mental status grossly normal Mood & Affect: anxious Skin no rashes or lesions noted and no wounds MDM MDM MDM Narrative Medical decision making narrative: Patient is a 70-year-old female presenting with sudden onset of back pain and shortness of breath. She feels like she is having a muscle spasm in her back. She has been vomiting over the last 24 hours. She does have a lot of tenderness in the epigastric region and CT of the abdomen pelvis obtained. This shows concern for distal esophageal perforation. CT of the chest added on for further evaluation and I did speak with surgery on- call who feels that we do not have adequate ability to cover this. Given that we do not have cardiothoracic surgery here I do think that is reasonable. She does have a pleural effusion on the right side and what looks like aspiration pneumonia. She started on Zosyn. Cultures were obtained. Patient is given multiple doses of morphine and then Dilaudid for pain control. Her lactate is elevated at 2.3. Her white blood cell count is elevated 11.6. Initially discussed with [facility] transfer line who states that they do not have any cardiothoracic beds. Then discussed with [facility] and patient is accepted by thoracic surgery, Dr. Forbes, who accepted the patient. He did recommend flying her given the urgency of her presentation. Patient remained stable but in guarded condition while in the emergency room. Patient and family were informed of her plan of care. Lab Data Attestation: I reviewed the patient's lab results. Labs: Laboratory Results - last 24 hr 04/07/21 04/07/21 04/07/21 20:00 20:00 20:50 WBC 11.6 H RBC 4.80 Hgb 12.1 Hct 39.6 MCV 82.5 MCH 25.2 L MCHC 30.6 L RDW Std Deviation 49.0 H RDW Coeff of Valentina 16.3 H Plt Count 362 MPV 9.6 Immature Gran % (Auto) 0.700 Neut % (Auto) 85.8 H Lymph % (Auto) 9.3 L [place]t % (Auto) 3.8 Eos % (Auto) 0.1 Baso % (Auto) 0.3 Absolute Neuts (auto) 10.0 H Absolute Lymphs (auto) 1.08 Nucleated RBC % 0 Sodium 136 Potassium 3.4 L Chloride 105 Carbon Dioxide 23.0 Anion Gap 8 BUN 12 Creatinine 0.89 Estim Creat Clear Calc 44.38 Est GFR (MDRD) Af Amer 80 Est GFR (MDRD) Non-Af 66 BUN/Creatinine Ratio 13.5 Glucose 156 H Lactic Acid 2.3 H* Calcium 8.8 Total Bilirubin 0.50 AST 14 L ALT 17 Alkaline Phosphatase 148 H Troponin I High Sens 22 Total Protein 8.1 Albumin 3.3 Globulin 4.8 H Albumin/Globulin Ratio 0.7 L Lipase 113 Radiography Chest X-Ray - ED: 1 View, Read by ED Physician, Read by Radiologist and Right Infiltrate Diagnostic Testing: Radiology Impression Abdomen/Pelvis CT 04/07/21 20:32 IMPRESSION: 1. Extraluminal gas around the distal esophagus. Findings are concerning for perforation. This may be due to malignancy, infection, or severe vomiting. Consider CT of the chest for further evaluation. 2. Right lower lobe pneumonia. 3. Small right pleural effusion. Electronically Signed: Gia Avelar MD at 22:01 EDT Tel , Service support , ADDENDUM: 04/07/21 9718 IMPRESSION: 1. Extraluminal gas around the distal esophagus. Findings are concerning for perforation. This may be due to malignancy, infection, or severe vomiting. Consider CT of the chest for further evaluation. 2. Right lower lobe pneumonia. 3. Small right pleural effusion. N.B. : The above Results were Read Back by Gia Avelar MD to Dr Rachel MD, and understanding confirmed on 04/07/2021 22:11:04 (ET). Electronically Signed: Gia Avelar MD at 22:01 EDT Tel , Service support , Chest X-Ray 04/07/21 21:41 IMPRESSION: Normal x-ray examination of the chest. Electronically Signed: Gia Avelar MD at 22:56 EDT Tel , Service support , Chest CT 04/07/21 22:10 IMPRESSION: 1. Pneumomediastinum, suspicious for esophageal perforation. 2. Complex right pleural effusion suspicious for hemothorax and/or esophageal leak. 3. Small hiatal hernia. Electronically Signed: Gia Avelar MD at 23:53 EDT Tel , Service support , Critical Care Time Critical Care Time: Yes Critical care time (excluding procedures): 30-74 minutes (45), Discussing w/Pat ient &/or Family/Director Of Healthcare Systems, Discussing w/Consultants, Arranging Admission or Transfer and Performing Direct Patient Care at Bedside Discharge Plan Triage Chief Complaint: Shortness of Breath ED Provider: Lorelei Ramos Dx/Rx/DC Orders Clinical Impression: Esophageal perforation, Pneumomediastinum, Right lower lobe pneumonia, Pleural effusion, right, Acidosis, lactic Prescriptions: No Action levothyroxine 75 MCG tablet 75 mcg PO DAILY RF: 0 paliperidone palmitate 156 mg/mL syringe 156 mg IM QMONTH RF: 0 escitalopram oxalate 10 MG tablet 10 mg PO DAILY RF: 0 benztropine 1 MG tablet 1 mg PO DAILY RF: 0 sucralfate 1 GM tablet 1 gm PO 1HR_ACHS Qty: 120 RF: 0 pantoprazole 40 MG tablet 40 mg PO BID Qty: 60 RF: 0 Primary Care Provider: Jarrett Hopkins Referrals: Jarrett Hopkins MD [Primary Care Provider] -
[2021-04-07] MEDS: Ondansetron 4 MG/2 ML Vial IV (20:46)
[2021-04-07] MEDS: Morphine 4 MG/ML Syringe IV ×2 (20:46→22:24)
[2021-04-07 20:49] LABS: Absolute Lymphocyte Count 1.08 X10^3/uL (0.83-4.51); Basophil# 0.03 X10^3/uL; Basophil% 0.3 % (0-1); Eosinophil# 0.01 X10^3/uL; Eosinophils% 0.1 % (0-5); Hematocrit 39.6 % (37-47); Hemoglobin 12.1 g/dL (12.0-15.0); Lymphocyte # 1.08 X10^3/ul (0.83-4.51); Lymphocyte % 9.3 % (19-41); Mean Corp Hgb Conc 30.6 g/dL (32-36); Mean Corpuscular Hgb 25.2 pg (27.0-32.0); Mean Corpuscular Volume 82.5 fL (81-99); Mean Platelet Vol. 9.6 fl (6.2-12.0); Monocyte# 0.44 X10^3/uL; Monocyte% 3.8 % (0-10); NRBC Flagged by Analyzer 0 % (0-5); Neutrophil # 9.99 X10^3/uL (2.7-7.7); Neutrophil % 85.8 % (47-70); Platelet Count 362 K/mm3 (150-450); RBC Distribution Width CV 16.3 % (11.6-14.6); White Blood Count 11.6 K/mm3 (4.4-11.0)
[2021-04-07] MEDS: 0.9% Normal Saline 1,000 ML 125 ML IV (21:05)
[2021-04-07 21:08] LABS: ALB/GLOB Ratio 0.7 RATIO (0.9-2.4); AST(SGOT) 14 U/L (15-37); Alanine Aminotransfer ALT/SGPT 17 U/L (13-56); Albumin, Serum 3.3 g/dL (3.2-5.0); Alkaline Phosphatase 148 U/L (45-117); Anion Gap 8 (5-15); BUN 12 mg/dL (7-18); BUN/Creat Ratio 13.5 RATIO (10-20); Calcium,Total 8.8 mg/dL (8.5-10.1); Chloride 105 mmol/L (98-107); Creatinine, Serum 0.89 mg/dL (0.55-1.02); EST Glomerular Filtration Rate 66 mL/min (>60); Est Glom Filt Rate - Afr Amer 80 mL/min (>60); Estimated Creatinine Clearance 44.38 ml/min; Globulin 4.8 g/dL (2.2-4.2); Glucose 156 mg/dL (74-106); Lipase 113 U/L (73-393); Potassium 3.4 mmol/L (3.5-5.1); Protein, Total 8.1 g/dL (6.4-8.2); Sodium Level 136 mmol/L (136-145); Troponin-I HS 22 pg/mL (3.0-54.0)
[2021-04-07 21:30] LABS: Lactic Acid 2.3 mmol/L (0.4-1.9)
--- NOTE | 2021-04-07 21:41 | RAD_ITS ---
STUDY: X-RAY CHEST REASON FOR EXAM: Female, 70 years old. sob TECHNIQUE: Single AP portable view of the chest. COMPARISON: 04/24/2020. FINDINGS: The lungs are clear and expanded. There is no demonstrated pleural abnormality. Normal size heart. Normal mediastinum and ingrid. Normal visualized pulmonary arteries. Normal visualized aortic arch and descending thoracic aorta. Normal visualized thoracic spine. Normal visualized ribs, clavicles, and shoulders. There is no demonstrated abnormality of the visualized soft tissue structures of the upper abdomen. RAD/Chest 1 View (Portable) IMPRESSION: Normal x-ray examination of the chest. Electronically Signed: Gia Avelar MD at 22:56 EDT Tel , Service support ,
--- NOTE | 2021-04-07 22:10 | CT_ITS ---
STUDY: CT CHEST WITHOUT CONTRAST REASON FOR EXAM: Female, 70 years old. ? free air, sob RADIATION DOSAGE (If Supplied By Facility): CTDIvol = ( 19.40 ) mGy, DLP = ( 683.63 ) mGycm TECHNIQUE: Transaxial imaging was performed without the administration of intravenous contrast material. Individualized dose optimization techniques were used for this CT. COMPARISON: 04/04/20, CT abdomen 04/07/2021. FINDINGS: Heart size is normal. No pericardial effusion. The aorta is normal in caliber. There is no mediastinal mass. Proximal thoracic esophagus is distended with a gas fluid level. Below the gemma, the esophagus appears decompressed, with a large amount of extraluminal gas anterior to the esophagus. There is a small hiatal hernia. Small, complex right pleural effusion, suspicious for hemorrhage or esophageal leak. Mild right lower lobe airspace disease. There is no osseous abnormality. CT/Chest without Contrast IMPRESSION: 1. Pneumomediastinum, suspicious for esophageal perforation. 2. Complex right pleural effusion suspicious for hemothorax and/or esophageal leak. 3. Small hiatal hernia. Electronically Signed: Gia Avelar MD at 23:53 EDT Tel , Service support ,
[2021-04-07 22:52] VITALS: BP 118/76; PULSE 117; RESP 24; TEMP 36.3; O2SAT 94
--- NOTE | 2021-04-07 23:03 | ED.RN ---
called Tavon maldonado [phone] to update on pt's plan for transfer.
[2021-04-07] MEDS: HYDROmorphone 0.5 MG/0.5 ML SYRINGE IV (23:33)
[2021-04-07 23:48] VITALS: PULSE 114; RESP 30; O2SAT 90; O2SAT 91
[2021-04-08 00:12] VITALS: BP 97/57; PULSE 117; RESP 26; TEMP 36.3; O2SAT 93
[2021-04-08 00:57] LABS: Reflex Lactate? Y
== END 2021-04-08 00:22 | disposition short-term general hospital (02) ==
PROVIDERS: Emergency Provider Emergency Medicine; PCP Family Medicine
DX: K22.3 Perforation of esophagus (principal); J18.9 Pneumonia, unspecified organism; J90 Pleural effusion, not elsewhere classified; J98.2 Interstitial emphysema; E87.2 Acidosis; E03.9 Hypothyroidism, unspecified; M54.9 Dorsalgia, unspecified; G89.29 Other chronic pain; Z79.899 Other long term (current) drug therapy
CPT/HCPCS: 36415; 71045; 71250; 74177; 80053; 81001; 83605; 83690; 84484; 85025; 87040; 87426; 93005; 96361; 96365; 96375; 96376; 99285; J7030; P9612; Q9967; A4216; J2405